=== PATIENT | female | born 1940 | race Caucasian/White ===

== ENCOUNTER 2021-02-07 08:15 | Outpatient (REF) | payer MEDICARE, SELFPAY ==
[2021-02-07 11:12] LABS: MANUAL DIFF FLAG NO
[2021-02-07 11:15] LABS: Basophils Absolute Auto 0.1 X10*3/uL (0.0-0.2); Basophils Percent Auto 1.2 % (0-2); Eosinophils Absolute Auto 0.3 X10*3/uL (0.0-0.4); Eosinophils Percent Auto 4.5 % (0-4); Hematocrit 36.8 % (37-47); Hemoglobin 12.1 g/dl (12.0-16.0); Imm Gran Abs Auto 0.01 X10*3/uL (0.00-0.03); Imm Gran Pct Auto 0.2 % (0.0-0.4); Lymphocytes Absolute Auto 3.1 X10*3/uL (1.2-4.9); Lymphocytes Percent Auto 53.6 % (20-40); Mean Corpuscular HGB Conc 32.9 g/dl (31.0-35.0); Mean Corpuscular Volume 100.3 fL (80-98); Mean Platelet Volume 9.8 fL (9.4-12.3); Monocytes Absolute Auto 0.7 X10*3/uL (0.1-1.2); Monocytes Percent Auto 11.6 % (2-11); Neutrophils Absolute Auto 1.7 X10*3/uL (2.0-8.3); Neutrophils Percent Auto 28.9 % (45-73); Platelet Count 277 X10*3/uL (160-400); Red Blood Count 3.67 X10*6/uL (4.20-5.50); Red Cell Distribution Width 13.5 % (11.0-16.0); White Blood Count 5.8 X10*3/uL (4.8-10.8)
[2021-02-07 11:37] LABS: Alanine Aminotransferase 19 U/L (0-31); Albumin Level 3.7 g/dL (3.5-5.0); Alkaline Phosphatase 86 U/L (39-117); Anion Gap 13 (12-20); Aspartate Amino Transferase 20 U/L (5-31); Bilirubin Total 0.5 mg/dL (0.0-1.0); Blood Urea Nitrogen 16 mg/dL (9-16); Calcium 9.2 mg/dL (8.4-10.2); Carbon Dioxide 24 mmol/L (22-29); Chloride 110 mmol/L (96-108); Cholesterol 259 mg/dL; Estimated Glomerular Filt Rate > 60; Glucose Fasting 99 mg/dL (60-99); HDL Cholesterol 60 mg/dL; LDL Cholesterol Calculated 169 mg/dl; Potassium 4.3 mmol/L (3.3-5.1); Sodium 143 mmol/L (135-145); Total Protein 6.6 g/dL (6.5-8.0); Triglycerides 151 mg/dL
[2021-02-08 15:01] LABS: Vitamin B12 277 pg/mL (200-900)
== END 2021-02-07 08:16 | disposition home or self-care (01) ==
LOC: HO.MANLDS 08:15
PROVIDERS: PCP Internal Medicine; Visit Provider Internal Medicine
DX: Z00.01 Encounter for general adult medical examination with abnormal findings (principal)
CPT/HCPCS: 36415; 80053; 80061; 82607; 85025

== ENCOUNTER 2021-05-05 11:56 | Outpatient (REF) | payer MEDICARE, SELFPAY ==
[2021-05-05 14:16] LABS: Vitamin B12 > 2000 pg/mL (200-900)
== END 2021-05-05 11:57 | disposition home or self-care (01) ==
LOC: HO.MANLDS 11:56
PROVIDERS: PCP Internal Medicine; Visit Provider Internal Medicine
DX: E53.8 Deficiency of other specified B group vitamins (principal)
CPT/HCPCS: 36415; 82607

== ENCOUNTER 2021-06-09 14:06 | Outpatient (REF) | payer MEDICARE, SELFPAY ==
[2021-06-09 19:15] LABS: Vitamin B12 1007 pg/mL (200-900)
== END 2021-06-09 14:07 | disposition home or self-care (01) ==
LOC: HO.MANLDS 14:06
PROVIDERS: PCP Internal Medicine; Visit Provider Internal Medicine
DX: E53.8 Deficiency of other specified B group vitamins (principal)
CPT/HCPCS: 36415; 82607

== ENCOUNTER 2022-04-01 12:17 | Outpatient (REF) | payer MEDICARE, SELFPAY ==
[2022-04-01 14:16] LABS: MANUAL DIFF FLAG NO
[2022-04-01 14:25] LABS: Basophils Absolute Auto 0.1 X10*3/uL (0.0-0.2); Basophils Percent Auto 0.8 % (0-2); Eosinophils Absolute Auto 0.1 X10*3/uL (0.0-0.4); Eosinophils Percent Auto 0.8 % (0-4); Hematocrit 38.3 % (37.0-47.0); Hemoglobin 12.9 g/dl (12.0-16.0); Imm Gran Abs Auto 0.02 X10*3/uL (0.00-0.03); Imm Gran Pct Auto 0.3 % (0.0-0.4); Lymphocytes Absolute Auto 2.8 X10*3/uL (1.2-4.9); Lymphocytes Percent Auto 38.7 % (20-40); Mean Corpuscular HGB Conc 33.7 g/dl (31.0-35.0); Mean Corpuscular Hemoglobin 33.5 pg (27.0-33.0); Mean Corpuscular Volume 99.5 fL (80.0-98.0); Mean Platelet Volume 9.3 fL (9.4-12.3); Monocytes Absolute Auto 0.6 X10*3/uL (0.1-1.2); Monocytes Percent Auto 8.9 % (2-11); Neutrophils Absolute Auto 3.7 x10*3/uL (2.0-8.3); Neutrophils Percent Auto 50.5 % (45-73); Platelet Count 275 X10*3/uL (160-400); Red Blood Count 3.85 X10*6/uL (4.20-5.50); Red Cell Distribution Width 12.4 % (11.0-16.0); White Blood Count 7.2 X10*3/uL (4.8-10.8)
[2022-04-01 14:55] LABS: Alanine Aminotransferase 14 U/L (0-31); Albumin Level 4.1 g/dL (3.5-5.0); Alkaline Phosphatase 67 U/L (39-117); Anion Gap 15 (12-20); Aspartate Amino Transferase 21 U/L (5-31); Bilirubin Total 0.5 mg/dL (0.0-1.0); Blood Urea Nitrogen 20 mg/dL (9-16); Calcium 9.5 mg/dL (8.4-10.2); Carbon Dioxide 22 mmol/L (22-29); Chloride 106 mmol/L (96-108); Estimated Glomerular Filt Rate > 60; Glucose Random 105 mg/dL (60-115); Potassium 4.4 mmol/L (3.3-5.1); Sodium 139 mmol/L (135-145); Total Protein 7.2 g/dL (6.5-8.0)
[2022-04-01 15:22] LABS: Erythrocyte Sedimentation Rate 7 MM/HR (0-20)
[2022-04-01 15:32] LABS: Folate 13.4 ng/mL (> or = 4.0); Vitamin B12 746 pg/mL (200-900)
== END 2022-04-01 12:18 | disposition home or self-care (01) ==
LOC: HO.MANLDS 12:17
PROVIDERS: Visit Provider Internal Medicine
DX: R20.0 Anesthesia of skin (principal)
CPT/HCPCS: 36415; 80053; 82607; 82746; 85025; 85652

== ENCOUNTER → 2022-10-28 09:56 | Outpatient (REF) | payer MEDICARE, SELFPAY ==
--- NOTE | ~2022-10-28 | XR_ITS ---
EXAMINATION: Lumbar spine and sacroiliac joint x-rays CLINICAL INFORMATION: Lumbar spondylolisthesis. COMPARISON: None. TECHNIQUE: 3 views of the lumbar spine and 3 views of the sacroiliac joints FINDINGS: Lumbar spine: There is posterior fusion hardware with posterior rods and bilateral transpedicular screws at L4 and S1. There are intervertebral body disc interspaces at L4-L5 and L5-S1. Surgical hardware appears intact. No fracture or dislocation. There is mild 7 mm anterior subluxation of L5 with respect to S1. There is degenerative disc disease and spondylosis at L2-L3 and L3-L4. There is atherosclerotic disease. Sacroiliac joints: The sacroiliac joints are normal-appearing. No evidence of erosive or proliferative arthritis. No fracture seen. The tip of the coccyx not included on the lateral view. There is arthritis at both hip joints. XR/XR sacroiliac joint min 3V IMPRESSION: Lumbar spine: Postsurgical changes at from L4 to S1. Mild 7 mm anterior subluxation of L5 with respect to S1. Degenerative changes at L2-L3 and L3-L4. Normal-appearing sacroiliac joints. Mild arthritis at both hip joints.
--- NOTE | ~2022-10-28 | XR_ITS ---
EXAMINATION: Lumbar spine and sacroiliac joint x-rays CLINICAL INFORMATION: Lumbar spondylolisthesis. COMPARISON: None. TECHNIQUE: 3 views of the lumbar spine and 3 views of the sacroiliac joints FINDINGS: Lumbar spine: There is posterior fusion hardware with posterior rods and bilateral transpedicular screws at L4 and S1. There are intervertebral body disc interspaces at L4-L5 and L5-S1. Surgical hardware appears intact. No fracture or dislocation. There is mild 7 mm anterior subluxation of L5 with respect to S1. There is degenerative disc disease and spondylosis at L2-L3 and L3-L4. There is atherosclerotic disease. Sacroiliac joints: The sacroiliac joints are normal-appearing. No evidence of erosive or proliferative arthritis. No fracture seen. The tip of the coccyx not included on the lateral view. There is arthritis at both hip joints. XR/XR lumbar spine 2-3V IMPRESSION: Lumbar spine: Postsurgical changes at from L4 to S1. Mild 7 mm anterior subluxation of L5 with respect to S1. Degenerative changes at L2-L3 and L3-L4. Normal-appearing sacroiliac joints. Mild arthritis at both hip joints.
--- NOTE | 2022-10-28 10:00 | CA_ITS ---
Transthoracic Echocardiogram Patient (Last, First, Middle): Shruthi Redding, Gender: Female Date of : 1940 Age: 82 Procedure Date: 10/28/2022 Procedure Type: Transthoracic Echocardiogram Location: [facility] Height: 154.94 cm Weight: 59.88 kg BSA: 1.58 m2 Heart Rate: 56 bpm BP: 155 / 80 mmHg Movie Operator: FERNANDEZ Lund MD: Brian Mejia MD City Letter Carrier: Emiliano Green MD Symptoms: CVA Z86.73 Study Quality: Fair ECG Rhythm: Bradycardia Conclusions: - 1. Normal LV systolic function with grade 1 diastolic dysfunction 2. Mild mitral regurgitation 3. Normal RV systolic pressure 4. No gross pericardial effusion 5. PFO cannot be entirely ruled out on this study Findings Left Ventricle Normal left ventricular size, thickness, and systolic function. The visually estimated ejection fraction is between 55-60%. Spectral Doppler is indicative of an impaired relaxation filling pattern. E/E prime ratio is <8, consistent with normal filling pressures. Evidence suggests grade I (mild) diastolic dysfunction. Right Ventricle Normal right ventricular cavity size and systolic function. Atria Both atria are normal in size. There is a mobile atrial septum noted. On color Doppler there is suggestion of PF for with [id number] flow on subcostal windows. However saline contrast study does not show any evidence of shunting. Consider KRIS if clinically indicated. Aortic Valve Normal aortic valve structure and function. There is no aortic valve stenosis. There is no aortic valve regurgitation. Mitral Valve There is mild anterior and posterior mitral leaflet thickening. There is mild mitral valve regurgitation. There is no mitral valve stenosis. Pulmonic Valve The pulmonic valve was not well visualized. Tricuspid Valve Likely normal tricuspid valve structure and function. There is trace tricuspid valve regurgitation. The right ventricular systolic pressure is normal. The right ventricular systolic pressure is 17 mmHg. Normal right atrial pressure. There is no evidence of pulmonary hypertension. Great Vessels All visible segments of the aorta are normal in size. The pulmonary artery was not well visualized. Venous The inferior vena cava is normal in size and collapses greater than 50% with inspiration. Pericardium/Pleural There is no evidence of pericardial effusion. Prior Study Comparison No prior study available for comparison. Measurements 2D Linear Measurements IVSd: 1.03 0.6-0.9/0.6-1.0 cm LVIDd: 3.93 3.9-5.3/4.2-5.9 cm LVIDd Index: 2.49 2.4-3.2/2.2-3.1 cm/m2 LVIDs: 2.94 2.0-3.6 cm LVPWd: 0.83 0.7-1.1 cm LA Diam: 3.00 2.7-3.8/3.0-4.0 cm LAIDs Index: 1.90 1.5-2.3 cm/m2 LV Mass: 138.22 67-162/88-224 g LV Mass Index: 87.48 43-95/49-115 g/m2 LVOT Diam: 1.60 3.0+(-)1.3 cm 2D Systolic Function EF 4C: 50.10 >55% EF 2C: 69.30 >55% EF BiP: 59.80 >55% Mitral Valve MV Pk E: 0.62 MV PK A: 0.89 MV Decel Time: 154.00 E/A: 0.70 E'Lateral: 5.87 E'Medial: 3.59 E/E' Med: 17.20 E/E' Lat: 10.50 PHT: 45.00 MVA PHT: 4.89 Decel Cass: 4.00 Aortic Valve AoV Pk Aniceto: 1.22 AoV Mn Aniceto: 0.91 AoV VTI: 0.33 AoV Pk Grad: 6.00 Aov Mn Grad: 4.00 TINA Cont.VTI: 1.43 LVOT LVOT Pk Aniceto: 0.88 LVOT Mn Aniceto: 0.63 LVOT VTI: 0.24 LVOT Pk Grad: 3.00 LVOT Mn Grad: 2.00 LVOT Diam: 1.60 LVOT Area: 2.01 Diastolic Function MV Pk E: 0.62 MV Pk A: 0.89 E/A: 0.70 E'Medial: 3.59 E/E' Med: 17.20 E' Laterial: 5.87 E/E' Lat: 10.50 Right Ventricle TAPSE (mm): 21.50 TVS' Aniceto: 10.30 Tricuspid Valve TR Pk Aniceto: 1.85 TR Pk Grad: 14.00 RA Press: 3.00 RVSP: 17.00 Great Vessels Aorta Sinus of Valsalva: 3.20 2.0-3.5 cm Ao Asc: 3.10 2.1-3.4 cm Pulmonary Valve PV Pk Aniceto: 0.83 Peak PV Grad: 3.00 Updated in Other Vendor System with Status of Final Emiliano Green MD electronically signed on 10/29/2022 5:46:37 PM with status of Final
== END ==
LOC: HO.CARD 09:56
PROVIDERS: Absent Provider Internal Medicine; PCP Internal Medicine; Visit Provider Psychiatry & Neurology Neurology
DX: M43.16 Spondylolisthesis, lumbar region (principal); Z86.73 Personal history of transient ischemic attack (TIA), and cerebral infarction without residual deficits
CPT/HCPCS: 72100; 72202; 93306

== ENCOUNTER 2022-12-16 14:15 | Outpatient (REF) | payer MEDICARE, SELFPAY ==
[2022-12-16 18:57] LABS: Uric Acid 4.9 mg/dL (2.4-5.7)
== END 2022-12-16 14:16 | disposition home or self-care (01) ==
LOC: HO.MANLDS 14:15
PROVIDERS: Visit Provider Physician Assistant
DX: M10.9 Gout, unspecified (principal)
CPT/HCPCS: 36415; 84550

== ENCOUNTER 2023-02-22 11:54 | Outpatient (REF) | payer MEDICARE, SELFPAY ==
[2023-02-22 17:51] LABS: Uric Acid 3.6 mg/dL (2.4-5.7)
== END 2023-02-22 11:55 | disposition home or self-care (01) ==
LOC: HO.MANLDS 11:54
PROVIDERS: Visit Provider Internal Medicine
DX: M10.9 Gout, unspecified (principal)
CPT/HCPCS: 36415; 84550

== ENCOUNTER 2023-03-29 10:56 | Outpatient (REF) | payer MEDICARE, SELFPAY ==
[2023-03-29 14:18] LABS: Uric Acid 2.8 mg/dL (2.4-5.7)
== END 2023-03-29 10:57 | disposition home or self-care (01) ==
LOC: HO.MANLDS 10:56
PROVIDERS: Visit Provider Internal Medicine
DX: M10.9 Gout, unspecified (principal)
CPT/HCPCS: 36415; 84550

== ENCOUNTER 2023-04-09 10:56 | Outpatient (REF) | payer MEDICARE, SELFPAY ==
[2023-04-09 13:29] LABS: MANUAL DIFF FLAG NO
[2023-04-09 13:45] LABS: Basophils Absolute Auto 0.1 X10*3/uL (0.0-0.2); Basophils Percent Auto 1.3 % (0-2); Eosinophils Absolute Auto 0.1 X10*3/uL (0.0-0.4); Eosinophils Percent Auto 1.8 % (0-4); Hemoglobin 11.6 g/dl (12.0-16.0); Imm Gran Abs Auto 0.01 X10*3/uL (0.00-0.03); Imm Gran Pct Auto 0.2 % (0.0-0.4); Lymphocytes Absolute Auto 1.9 X10*3/uL (1.2-4.9); Lymphocytes Percent Auto 30.3 % (20-40); Mean Corpuscular HGB Conc 34.1 g/dl (31.0-35.0); Mean Corpuscular Volume 96.6 fL (80.0-98.0); Mean Platelet Volume 9.6 fL (9.4-12.3); Monocytes Absolute Auto 0.5 X10*3/uL (0.1-1.2); Monocytes Percent Auto 8.1 % (2-11); Neutrophils Absolute Auto 3.6 x10*3/uL (2.0-8.3); Neutrophils Percent Auto 58.3 % (45-73); Platelet Count 297 X10*3/uL (160-400); Red Blood Count 3.52 X10*6/uL (4.20-5.50); Red Cell Distribution Width 13.4 % (11.0-16.0); White Blood Count 6.1 X10*3/uL (4.8-10.8)
[2023-04-09 14:19] LABS: Erythrocyte Sedimentation Rate 10 MM/HR (0-20)
[2023-04-09 14:36] LABS: Alanine Aminotransferase 15 U/L (0-31); Alkaline Phosphatase 63 U/L (39-117); Anion Gap 12 (12-20); Aspartate Amino Transferase 21 U/L (5-31); Bilirubin Total 0.6 mg/dL (0.0-1.0); Blood Urea Nitrogen 16 mg/dL (9-16); C Reactive Protein 0.12 mg/dL (< or = 0.50); Calcium 9.6 mg/dL (8.4-10.2); Carbon Dioxide 25 mmol/L (22-29); Chloride 103 mmol/L (96-108); Estimated Glomerular Filt Rate > 60; Glucose Random 97 mg/dL (60-115); Potassium 4.1 mmol/L (3.3-5.1); Sodium 136 mmol/L (135-145); Total Protein 6.8 g/dL (6.5-8.0)
[2023-04-09 14:37] LABS: Thyroid Stimulating Hormone 0.82 uIU/mL (0.32-4.0)
== END 2023-04-09 10:57 | disposition home or self-care (01) ==
LOC: HO.MANLDS 10:56
PROVIDERS: Visit Provider Internal Medicine
DX: R63.4 Abnormal weight loss (principal)
CPT/HCPCS: 36415; 80053; 84443; 85025; 85652; 86140

== ENCOUNTER → 2023-04-12 10:47 | Outpatient (REF) | payer MEDICARE, SELFPAY ==
--- NOTE | ~2023-04-12 | NM_ITS ---
EXAMINATION: BONE SCAN OF THE DISTAL LOWER EXTREMITIES CLINICAL INFORMATION: Gout unspecified bilateral feet, erosive changes due to gout. COMPARISON: No previous bone scan or radiographs are available for comparison. TECHNIQUE: Multiple gamma scintillation camera images of the knees to the feet with multiple projections of the distal lower extremities were performed 3 hours following the intravenous administration of 18 mCi Tc-99m MDP. FINDINGS: There is a focus of moderately increased activity in the right first metatarsophalangeal joint region. There is an additional focus of mildly increased activity medially in the proximal left foot, probably in the tuberosity of the navicular bone. There is mildly increased activity diffusely across the tarsometatarsal joint regions of the left foot and a few small faint foci of increased activity are present in the tarsal bones of the right foot, most prominently in the region of the fourth tarsometatarsal joints or lateral cuneiform bone. No other significant foci of abnormally increased activity are present in either foot or ankle. No other significant abnormalities are present in the other visualized bones. NM/NM bone scan limited area IMPRESSION: Nonspecific abnormalities are noted as described above. The most prominent abnormality is in the right first metatarsophalangeal joint region and is likely due to the patient's known gout. Several less intense foci are present as described above, the most prominent of these in the medial aspect of the proximal left foot which may be traumatic in etiology but the others are very mild and nonspecific and may be degenerative or traumatic in etiology. Correlation with current foot radiographs is recommended.
== END ==
LOC: HO.NUCMED 10:47
PROVIDERS: PCP Internal Medicine; Visit Provider Physician Assistant
DX: M10.9 Gout, unspecified (principal)
CPT/HCPCS: 78300; A9503

== ENCOUNTER 2023-04-30 10:53 | Outpatient (REF) | payer MEDICARE, SELFPAY ==
[2023-04-30 13:57] LABS: C Reactive Protein 0.18 mg/dL (< or = 0.50); Magnesium 1.6 mg/dL (1.6-2.6); Uric Acid 1.8 mg/dL (2.4-5.7)
[2023-04-30 14:02] LABS: Erythrocyte Sedimentation Rate 7 MM/HR (0-20)
== END 2023-04-30 10:54 | disposition home or self-care (01) ==
LOC: HO.MANLDS 10:53
PROVIDERS: PCP Physician Assistant; Visit Provider Internal Medicine
DX: M10.071 Idiopathic gout, right ankle and foot (principal)
CPT/HCPCS: 36415; 83735; 84550; 85652; 86140

== ENCOUNTER 2023-06-18 11:12 | Outpatient (REF) | payer MEDICARE, SELFPAY ==
[2023-06-18 13:52] LABS: Uric Acid 2.7 mg/dL (2.4-5.7)
== END 2023-06-18 11:13 | disposition home or self-care (01) ==
LOC: HO.MANLDS 11:12
PROVIDERS: Visit Provider Internal Medicine
DX: M10.9 Gout, unspecified (principal)
CPT/HCPCS: 36415; 84550

== ENCOUNTER 2023-07-27 11:34 | Outpatient (REF) | payer MEDICARE, SELFPAY | END 2023-07-27 11:35 | disposition home or self-care (01) | LOC: HO.MANLDS 11:34 | PROVIDERS: Visit Provider Internal Medicine | DX: M10.9 Gout, unspecified (principal) | CPT/HCPCS: 36415; 84550 ==

== ENCOUNTER 2023-10-22 08:50 | Outpatient (REF) | payer MEDICARE, SELFPAY ==
[2023-10-22 13:26] LABS: MANUAL DIFF FLAG NO
[2023-10-22 13:40] LABS: Basophils Absolute Auto 0.1 X10*3/uL (0.0-0.2); Basophils Percent Auto 1.4 % (0-2); Eosinophils Absolute Auto 0.1 X10*3/uL (0.0-0.4); Eosinophils Percent Auto 2.3 % (0-4); Hematocrit 35.4 % (37.0-47.0); Hemoglobin 12.1 g/dl (12.0-16.0); Imm Gran Abs Auto 0.01 X10*3/uL (0.00-0.03); Imm Gran Pct Auto 0.2 % (0.0-0.4); Lymphocytes Percent Auto 34.8 % (20-40); Mean Corpuscular HGB Conc 34.2 g/dl (31.0-35.0); Mean Corpuscular Hemoglobin 34.7 pg (27.0-33.0); Mean Corpuscular Volume 101.4 fL (80.0-98.0); Mean Platelet Volume 9.5 fL (9.4-12.3); Monocytes Absolute Auto 0.5 X10*3/uL (0.1-1.2); Monocytes Percent Auto 9.2 % (2-11); Neutrophils Percent Auto 52.1 % (45-73); Platelet Count 270 X10*3/uL (160-400); Red Blood Count 3.49 X10*6/uL (4.20-5.50); Red Cell Distribution Width 13.2 % (11.0-16.0); White Blood Count 5.8 X10*3/uL (4.8-10.8)
[2023-10-22 14:07] LABS: Alanine Aminotransferase 15 U/L (0-31); Alkaline Phosphatase 66 U/L (39-117); Anion Gap 9 (12-20); Aspartate Amino Transferase 20 U/L (5-31); Bilirubin Total 0.5 mg/dL (0.0-1.0); Blood Urea Nitrogen 22 mg/dL (9-16); Calcium 9.5 mg/dL (8.4-10.2); Carbon Dioxide 28 mmol/L (22-29); Chloride 107 mmol/L (96-108); Cholesterol 235 mg/dL (<200); Estimated Glomerular Filt Rate > 60; Glucose Random 89 mg/dL (60-115); HDL Cholesterol 100 mg/dL (>40); LDL Cholesterol Calculated 125 mg/dL (<100); Magnesium 1.8 mg/dL (1.6-2.6); Potassium 4.4 mmol/L (3.3-5.1); Sodium 140 mmol/L (135-145); Total Protein 7.1 g/dL (6.5-8.0); Triglycerides 50 mg/dL (<150); Uric Acid 3.6 mg/dL (2.4-5.7)
[2023-10-22 14:26] LABS: Thyroid Stimulating Hormone 0.94 uIU/mL (0.32-4.0); Vitamin D 25-OH Total 59.5 ng/mL (>30)
== END 2023-10-22 08:51 | disposition home or self-care (01) ==
LOC: HO.MANLDS 08:50
PROVIDERS: Visit Provider Internal Medicine
DX: M10.9 Gout, unspecified (principal); I10 Essential (primary) hypertension
CPT/HCPCS: 36415; 80053; 80061; 82306; 83735; 84443; 84550; 85025

== ENCOUNTER 2023-12-23 13:59 | Outpatient (REF) | payer MEDICARE, SELFPAY ==
--- NOTE | ~2023-12-23 | XR_ITS ---
EXAMINATION: XR CHEST CLINICAL INFORMATION: Chronic cough. COMPARISON: None available. TECHNIQUE: 2 views of the chest were obtained. FINDINGS: Degenerative changes in the thoracic spine. Lung volumes are low. There is no gross pneumothorax. Heart size is normal. No pleural effusion. No focal consolidation to suggest pneumonia. XR/XR chest 2V IMPRESSION: No evidence of pneumonia.
--- NOTE | ~2023-12-23 | XR_ITS ---
EXAMINATION: XR SINUSES CLINICAL INFORMATION: Headache with orthostatic component . COMPARISON: None available. TECHNIQUE: 4 views of the paranasal sinuses. FINDINGS: No gross air-fluid levels appreciated in the maxillary sinuses. Frontal sinuses appear patent. Slight deviation of the nasal septum to the left. XR/XR sinus min 3V IMPRESSION: 1. Slight deviation of the nasal septum to the left. No gross air-fluid levels appreciated in the maxillary sinuses. 2. Dedicated CT scan of the paranasal sinuses/facial bones recommended if there is concern for sinus disease, facial bone fracture or other intracranial pathology as CT scan is much more sensitive for evaluation of intracranial pathology.
[2023-12-23 14:25] LABS: MANUAL DIFF FLAG NO
[2023-12-23 15:16] LABS: Basophils Absolute Auto 0.1 X10*3/uL (0.0-0.2); Eosinophils Absolute Auto 0.1 X10*3/uL (0.0-0.4); Eosinophils Percent Auto 1.2 % (0-4); Hematocrit 34.3 % (37.0-47.0); Hemoglobin 11.7 g/dl (12.0-16.0); Imm Gran Abs Auto 0.01 X10*3/uL (0.00-0.03); Imm Gran Pct Auto 0.1 % (0.0-0.4); Lymphocytes Absolute Auto 2.3 X10*3/uL (1.2-4.9); Lymphocytes Percent Auto 31.8 % (20-40); Mean Corpuscular HGB Conc 34.1 g/dl (31.0-35.0); Mean Corpuscular Hemoglobin 34.6 pg (27.0-33.0); Mean Corpuscular Volume 101.5 fL (80.0-98.0); Mean Platelet Volume 9.3 fL (9.4-12.3); Monocytes Absolute Auto 0.6 X10*3/uL (0.1-1.2); Neutrophils Absolute Auto 4.2 x10*3/uL (2.0-8.3); Neutrophils Percent Auto 57.9 % (45-73); Platelet Count 263 X10*3/uL (160-400); Red Blood Count 3.38 X10*6/uL (4.20-5.50); Red Cell Distribution Width 13.2 % (11.0-16.0); White Blood Count 7.3 X10*3/uL (4.8-10.8)
[2023-12-23 15:18] LABS: Basophils Absolute Auto 0.1 X10*3/uL (0.0-0.2); Basophils Percent Auto 0.8 % (0-2); Eosinophils Absolute Auto 0.1 X10*3/uL (0.0-0.4); Eosinophils Percent Auto 1.1 % (0-4); Hematocrit 34.1 % (37.0-47.0); Hemoglobin 11.6 g/dl (12.0-16.0); Imm Gran Abs Auto 0.03 X10*3/uL (0.00-0.03); Imm Gran Pct Auto 0.4 % (0.0-0.4); Lymphocytes Absolute Auto 2.4 X10*3/uL (1.2-4.9); Lymphocytes Percent Auto 32.6 % (20-40); Mean Corpuscular Hemoglobin 34.2 pg (27.0-33.0); Mean Corpuscular Volume 100.6 fL (80.0-98.0); Mean Platelet Volume 9.5 fL (9.4-12.3); Monocytes Absolute Auto 0.6 X10*3/uL (0.1-1.2); Monocytes Percent Auto 7.6 % (2-11); Neutrophils Absolute Auto 4.2 x10*3/uL (2.0-8.3); Neutrophils Percent Auto 57.5 % (45-73); Platelet Count 268 X10*3/uL (160-400); Red Blood Count 3.39 X10*6/uL (4.20-5.50); White Blood Count 7.2 X10*3/uL (4.8-10.8)
[2023-12-23 15:33] LABS: Alanine Aminotransferase 15 U/L (0-31); Albumin Level 3.9 g/dL (3.5-5.0); Alkaline Phosphatase 74 U/L (39-117); Anion Gap 11 (12-20); Aspartate Amino Transferase 21 U/L (5-31); Bilirubin Total 0.5 mg/dL (0.0-1.0); Blood Urea Nitrogen 23 mg/dL (9-16); C Reactive Protein 0.11 mg/dL (< or = 0.50); Calcium 9.3 mg/dL (8.4-10.2); Carbon Dioxide 23 mmol/L (22-29); Chloride 108 mmol/L (96-108); Estimated Glomerular Filt Rate 56; Glucose Random 87 mg/dL (60-115); Potassium 4.4 mmol/L (3.3-5.1); Sodium 138 mmol/L (135-145); Total Protein 6.9 g/dL (6.5-8.0)
[2023-12-23 15:44] LABS: Iron 103 mcg/dL (30-160); Percent Iron Saturation 40 % (15-50); Total Iron Binding Capacity 258 mcg/dL (228-428); Unsaturated Iron Binding 155 ug/dL
[2023-12-23 15:54] LABS: Ferritin 210 ng/mL (10-250)
[2023-12-23 16:21] LABS: Erythrocyte Sedimentation Rate 9 MM/HR (0-20)
== END 2023-12-23 14:00 | disposition home or self-care (01) ==
LOC: HO.XRAY 13:59
PROVIDERS: Absent Provider Physician Assistant; PCP Internal Medicine; Visit Provider Internal Medicine
DX: J32.8 Other chronic sinusitis (principal); M10.9 Gout, unspecified; R51.0 Headache with orthostatic component, not elsewhere classified; R05.3 Chronic cough; Z86.39 Personal history of other endocrine, nutritional and metabolic disease
CPT/HCPCS: 36415; 70220; 71046; 80053; 82728; 83540; 84550; 85025; 85652; 86140

== ENCOUNTER 2024-01-07 10:55 | Outpatient (REF) | payer MEDICARE, SELFPAY ==
[2024-01-07 13:01] LABS: MANUAL DIFF FLAG NO
[2024-01-07 13:13] LABS: Basophils Absolute Auto 0.1 X10*3/uL (0.0-0.2); Basophils Percent Auto 1.3 % (0-2); Eosinophils Absolute Auto 0.2 X10*3/uL (0.0-0.4); Eosinophils Percent Auto 2.6 % (0-4); Hematocrit 35.2 % (37.0-47.0); Hemoglobin 11.9 g/dl (12.0-16.0); Imm Gran Abs Auto 0.01 X10*3/uL (0.00-0.03); Imm Gran Pct Auto 0.2 % (0.0-0.4); Lymphocytes Absolute Auto 1.9 X10*3/uL (1.2-4.9); Lymphocytes Percent Auto 29.7 % (20-40); Mean Corpuscular HGB Conc 33.8 g/dl (31.0-35.0); Mean Corpuscular Hemoglobin 34.5 pg (27.0-33.0); Mean Platelet Volume 9.4 fL (9.4-12.3); Monocytes Absolute Auto 0.6 X10*3/uL (0.1-1.2); Monocytes Percent Auto 8.8 % (2-11); Neutrophils Absolute Auto 3.6 x10*3/uL (2.0-8.3); Neutrophils Percent Auto 57.4 % (45-73); Platelet Count 252 X10*3/uL (160-400); Red Blood Count 3.45 X10*6/uL (4.20-5.50); Red Cell Distribution Width 13.5 % (11.0-16.0); White Blood Count 6.2 X10*3/uL (4.8-10.8)
[2024-01-07 13:23] LABS: INTERNATIONAL NORM RATIO 0.9 (0.9-1.1); Prothrombin Time 11.2 SEC (11.1-13.3)
[2024-01-07 13:26] LABS: Partial Thromboplastin Time 28.6 SEC (26.0-36.8)
[2024-01-07 14:11] LABS: Iron 120 mcg/dL (30-160); Percent Iron Saturation 46 % (15-50); Total Iron Binding Capacity 259 mcg/dL (228-428); Unsaturated Iron Binding 139 ug/dL
[2024-01-07 14:18] LABS: Ferritin 205 ng/mL (10-250)
[2024-01-07 14:28] LABS: Folate 11.2 ng/mL (> or = 4.0); Vitamin B12 801 pg/mL (200-900)
== END 2024-01-07 10:56 | disposition home or self-care (01) ==
LOC: HO.MANLDS 10:55
PROVIDERS: Visit Provider Physician Assistant
DX: D64.9 Anemia, unspecified (principal)
CPT/HCPCS: 36415; 82306; 82607; 82728; 82746; 83540; 85025; 85610; 85730

== ENCOUNTER 2024-02-11 14:17 | Outpatient (REF) | payer MEDICARE, SELFPAY ==
--- NOTE | ~2024-02-11 | CT_ITS ---
EXAMINATION: CT SINUS WITHOUT CONTRAST CLINICAL INFORMATION: Chronic sinusitis COMPARISON: None available. TECHNIQUE: Multidetector CT acquisitions of the maxillofacial region without administration of intravenous contrast. This CT examination was performed using dose optimization techniques as appropriate, variously including the following: *Automated exposure control *Adjustment of mA and/or kV according to patient size (this includes techniques or standardized protocols for targeted exams where dose is matched to indication/reason for exam; i.e. extremities or head) *Use of iterative reconstruction technique DLP: 65 mGy-cm FINDINGS: The frontal sinuses are clear. The bilateral frontoethmoidal recesses are patent. The ethmoid air cells are clear. The anterior ethmoidal arteries are protected. There is no pneumatization of the jefry brady. The olfactory fossae are symmetric in depth. The sphenoid sinuses are clear. The intersphenoid septum is midline. The bilateral sphenoethmoidal recesses are patent. The maxillary sinuses are clear. The ostiomeatal units are patent however mildly narrowed on the right. There is no Ron cell or abnormal elongation of the infundibulum bilaterally. The maxilla demonstrates no periapical lucencies extending into the floor of the maxillary sinuses. The nasal septum is midline without bony spur. The choana are patent bilaterally. There is no sierra bullosa. The lamina papyracea are unremarkable. Sequela of bilateral lens replacement. Otherwise, no acute orbital pathology. The temporomandibular joints normal. Atherosclerotic calcifications of the bilateral carotid siphons. The visualized portions of the brain are unremarkable. CT/CT sinus wo IV con IMPRESSION: No active sinus disease. The major sinus drainage pathways are patent. Electronically signed by: Imelda Gallego MD 03/07/2024 09:17 AM EDT
== END 2024-02-11 14:18 | disposition home or self-care (01) ==
LOC: HO.CT 14:17
PROVIDERS: Visit Provider Physician Assistant
DX: J32.8 Other chronic sinusitis (principal)
CPT/HCPCS: 70486

== ENCOUNTER 2024-04-07 10:31 | Outpatient (REF) | payer MEDICARE, SELFPAY ==
[2024-04-07 13:18] LABS: MANUAL DIFF FLAG NO
[2024-04-07 13:33] LABS: Basophils Absolute Auto 0.1 X10*3/uL (0.0-0.2); Basophils Percent Auto 1.3 % (0-2); Eosinophils Absolute Auto 0.1 X10*3/uL (0.0-0.4); Eosinophils Percent Auto 1.6 % (0-4); Hematocrit 36.3 % (37.0-47.0); Hemoglobin 12.6 g/dl (12.0-16.0); Imm Gran Abs Auto 0.02 X10*3/uL (0.00-0.03); Imm Gran Pct Auto 0.3 % (0.0-0.4); Lymphocytes Absolute Auto 2.4 X10*3/uL (1.2-4.9); Lymphocytes Percent Auto 35.7 % (20-40); Mean Corpuscular HGB Conc 34.7 g/dl (31.0-35.0); Mean Corpuscular Hemoglobin 35.2 pg (27.0-33.0); Mean Corpuscular Volume 101.4 fL (80.0-98.0); Mean Platelet Volume 9.5 fL (9.4-12.3); Monocytes Absolute Auto 0.6 X10*3/uL (0.1-1.2); Monocytes Percent Auto 8.7 % (2-11); Neutrophils Absolute Auto 3.5 x10*3/uL (2.0-8.3); Neutrophils Percent Auto 52.4 % (45-73); Platelet Count 257 X10*3/uL (160-400); Red Blood Count 3.58 X10*6/uL (4.20-5.50); Red Cell Distribution Width 13.1 % (11.0-16.0); White Blood Count 6.8 X10*3/uL (4.8-10.8)
[2024-04-07 14:07] LABS: Iron 115 mcg/dL (30-160); Percent Iron Saturation 41 % (15-50); Total Iron Binding Capacity 278 mcg/dL (228-428); Unsaturated Iron Binding 163 ug/dL; Uric Acid 3.1 mg/dL (2.4-5.7)
[2024-04-07 14:26] LABS: Ferritin 211 ng/mL (10-250)
== END 2024-04-07 10:32 | disposition home or self-care (01) ==
LOC: HO.MANLDS 10:31
PROVIDERS: Visit Provider Internal Medicine
DX: M10.9 Gout, unspecified (principal)
CPT/HCPCS: 36415; 82728; 83540; 84550; 85025

== ENCOUNTER 2024-04-07 10:39 | Outpatient (REF) | payer MEDICARE, SELFPAY | END 2024-04-07 10:40 | disposition home or self-care (01) | LOC: HO.MANLDS 10:39 | PROVIDERS: Visit Provider Internal Medicine | DX: Z13.89 Encounter for screening for other disorder (principal) ==

== ENCOUNTER 2024-04-13 11:41 | Outpatient (REF) | payer MEDICARE, SELFPAY ==
[2024-04-13 12:03] LABS: MANUAL DIFF FLAG NO
[2024-04-13 12:43] LABS: Basophils Absolute Auto 0.1 X10*3/uL (0.0-0.2); Basophils Percent Auto 1.2 % (0-2); Eosinophils Absolute Auto 0.1 X10*3/uL (0.0-0.4); Eosinophils Percent Auto 2.1 % (0-4); Hematocrit 35.3 % (37.0-47.0); Hemoglobin 12.2 g/dl (12.0-16.0); Imm Gran Abs Auto 0.01 X10*3/uL (0.00-0.03); Imm Gran Pct Auto 0.1 % (0.0-0.4); Lymphocytes Absolute Auto 2.3 X10*3/uL (1.2-4.9); Lymphocytes Percent Auto 34.6 % (20-40); Mean Corpuscular HGB Conc 34.6 g/dl (31.0-35.0); Mean Corpuscular Volume 101.1 fL (80.0-98.0); Mean Platelet Volume 9.2 fL (9.4-12.3); Monocytes Absolute Auto 0.6 X10*3/uL (0.1-1.2); Monocytes Percent Auto 8.7 % (2-11); Neutrophils Absolute Auto 3.6 x10*3/uL (2.0-8.3); Neutrophils Percent Auto 53.3 % (45-73); Platelet Count 246 X10*3/uL (160-400); Red Blood Count 3.49 X10*6/uL (4.20-5.50); Red Cell Distribution Width 13.2 % (11.0-16.0); White Blood Count 6.8 X10*3/uL (4.8-10.8)
[2024-04-13 13:09] LABS: Alanine Aminotransferase 17 U/L (0-31); Aspartate Amino Transferase 21 U/L (5-31); Estimated Glomerular Filt Rate > 60
[2024-04-13 13:27] LABS: Erythrocyte Sedimentation Rate 8 MM/HR (0-20)
== END 2024-04-13 11:42 | disposition home or self-care (01) ==
LOC: HO.LAB 11:41
PROVIDERS: Absent Provider Internal Medicine Rheumatology; PCP Internal Medicine; Visit Provider Internal Medicine
DX: M10.9 Gout, unspecified (principal); M19.049 Primary osteoarthritis, unspecified hand; M19.90 Unspecified osteoarthritis, unspecified site; M25.50 Pain in unspecified joint; J32.9 Chronic sinusitis, unspecified
CPT/HCPCS: 36415; 82565; 84450; 84460; 84550; 85025; 85652; 86140

== ENCOUNTER 2024-07-21 15:43 | Outpatient (REF) | payer MEDICARE, SELFPAY ==
--- NOTE | 2024-07-21 15:48 | PFT_ITS ---
Indication dyspnea Spirometry [FEV1 to FVC 84%; FEV1 2.08 L; FVC 2.47 L. No significant response to bronchodilators noted.] Lung Volumes [Total lung capacity 79% predicted] Diffusion Capacity [DLCO 75% predicted] Flow Volume Loops [There appears to be some plateauing of the flows during the inspiratory phase of the flow volume loop suggests the possibility of a small extrathoracic dynamic obstruction.] Comparisons [None] Interpretation [No definitive obstructive ventilatory defects. Some slight plateauing of the inspiratory flows will suggest an upper airway extrathoracic dynamic obstruction such as vocal cord dysfunction. Patient also has a mild restrictive ventilatory defect. In addition to that a mild diffusion impairment. Clinical correlation warranted. ] MTDD
--- OUTSIDE RECORDS SUMMARY | 2024-07-21 16:34 | XMS_ITS | Data Portability ---
Author Organization [facility] Home Service Address [address] [place] [address] Assessment Encounter Date Assessment Date Assessment LastModified by Organization Details LastModified Time 06/11/2023 06/11/2023 [address] [place] [id number] (ELECTRICIAN BUS) : MDM LOW MUST MEET 2 OF 3 ELEMENTS: PROBLEMS, DATA OR RISK ELEMENT 1: PROBLEMS ADDRESSED (LOW): 2 OR MORE SELF-LIMITED OR MINOR PROBLEMS OR 1 STABLE CHRONIC ILLNESS OR 1 ACUTE UNCOMPLICATED ILLNESS OR INJURY ELEMENT 2: DATA TO BE REVISED AND ANALYZED (LOW) MUST MEET 1 OF 2 CATEGORIES: CATEGORY 1. REVIEW OF PRIOR EXTERNAL NOTES/RESULTS, ORDERING OF TEST(S) CATEGORY 2. ASSESSMENT REQUIRING INDEPENDENT HISTORIAN(S) INCLUDE WHO THE HISTORIAN IS AND RELATION TO PT AND WHY PT IS UNABLE TO GIVE COMPLETE HISTORY ELEMENT 3: RISK (LOW) RISK OF COMPLICATIONS AND/OR MORBIDITY OR MORTALITY OF PATIENT MANAGEMENT PROVIDER MUST THOROUGHLY DOCUMENT ALL OF THE ELEMENTS COVERED Not available 06/11/2023 15:18:58 12/08/2023 12/08/2023 [id number] [place] [id number] (ELECTRICIAN BUS) MDM HIGH MUST MEET 2 OUT OF 3 ELEMENTS: PROBLEMS, DATA OR RISK ELEMENT 1: PROBLEMS 1 OR MORE CHRONIC ILLNESS W/SEVERE EXACERBATION, PROGRESSION MAY REQUIRE HOSPITAL LEVEL CARE OR 1 ACUTE OR CHRONIC ILLNESS OR INJURY THAT POSES A THREAT TO LIFE OR BODILY FUNCTION ELEMENT 2: DATA: MUST MEET 2 OF 3 CATEGORIES CATEGORY 1 REVIEW OF PRIOR EXTERNAL NOTES REVIEW OF THE RESULTS ORDERING OF EACH TEST ASSESSMENT REQUIRING INDEPENDENT HISTORIAN(S) CATEGORY 2: INDEPENDENT INTERPRETATION OF TESTS BY ANOTHER PROVIDER/SPECIALI ST CATEGORY 3: DISCUSSION OF MGT OR TEST INTERPRETATION W/EXTERNAL PHYSICIAN/SPECIAL IST ELEMENT 3: RISK HIGH RISK OF MORBIDITY FROM ADDITIONAL DIAGNOSTIC TESTING OR TREATMENT PROVIDER MUST THOROUGHLY DOCUMENT EACH ELEMENT THAT IS COVERED Not available 12/08/2023 14:39:30 06/12/2024 06/12/2024 [address] [place] [address] (ELECTRICIAN BUS) MDM MODERATE MUST MEET 2 OUT OF 3 ELEMENTS: PROBLEMS, DATA OR RISK ELEMENT 1: PROBLEMS ADDRESSED 1 OR MORE CHRONIC ILLNESS WITH EXACERBATION OR 2 OR MORE STABLE CHRONIC ILLNESSES OR 1 UNDIAGNOSED NEW PROBLEM OR 1 ACUTE ILLNESS W/SYMPTOMS OR 1 ACUTE COMPLICATED INJURY ELEMENT 2: DATA MUST MEET 1 OF 3 CATEGORIES CATEGORY 1: REVIEW OF PRIOR EXTERNAL NOTES, REVIEW OF RESULTS, ORDERING OF EACH TEST, ASSESSMENT REQUIRING INDEPENDENT HISTORIAN OR CATEGORY 2: INDEPENDENT INTERPRETATION OF TESTS BY ANOTHER PHYSICIAN OR SPECIALIST OR CATEGORY 3: DISCUSSION OF MGT OR TEST INTERPRETATION W/EXTERNAL PHYSICIAN OR SPECIALIST ELEMENT 3: RISK RISK OF COMPLICATIONS AND/OR MORBIDITY OR MORTALITY OF PATIENT MANAGEMENT PROVIDER MUST THOROUGHLY DOCUMENT EACH ELEMENT THAT IS COVERED Not available 06/12/2024 13:56:13 Plan of Treatment Reminders Order Date Submit Date Provider Last Modified By Organization Details Last Modified Time Details Appointments MEDICARE ANNUAL WELLNESS 2024 11:00A M DR RICHMOND Not available Not available Not available Lab CMP, serum or plasma 2023 024 [facility], [address] [place] [address], [id number], 10/25/2023 11:37:05 CBC 2023 024 [facility], [address] [place] [address], [id number], 12/24/2023 11:05:36 TSH, serum or plasma 2023 024 [facility], [address] [place] [address], [id number], 08/27/2023 11:27:58 vitamin D, 25-hydrox y, total, serum 2023 024 [facility], [address] [place] [address], [id number], 08/27/2023 11:27:58 magnesium , serum or plasma 2023 024 [facility], [address] [place] [address], [id number], 08/27/2023 11:27:58 lipid panel, blood 2023 024 [facility], [address] [place] [address], [address], 08/27/2023 11:27:58 uric acid, serum or plasma 2023 024 [facility], [address] [place] [address], [id number], 12/08/2023 14:41:46 iron + TIBC + ferritin, serum 2023 024 [facility], [address] [place] [address], [id number], 12/15/2023 08:36:09 CBC 2023 024 [facility], [address] [place] [address], [id number], 12/08/2023 14:41:46 iron + TIBC + ferritin, serum 2023 024 [facility], [address] [place] [address], [address], 01/10/2024 11:28:05 iron + TIBC + ferritin, serum 2023 024 [facility], [address] [place] [address], [id number], 06/09/2024 10:32:23 iron + TIBC + ferritin, serum 2023 025 [facility], [address] [place] [address], [id number], 06/09/2024 10:32:23 ESR (erythroc yte sedimenta tion rate), blood 2023 024 [facility], [address] [place] [address], [id number], 12/20/2023 11:55:40 C-reactiv e protein, quantitat aniya, serum or plasma 2023 024 [facility], [address] [place] [address], [id number], 12/20/2023 11:55:40 CBC w/ auto diff 2023 [facility], [address] [place] [address], [id number], 12/20/2023 11:55:40 CMP, serum or plasma 2023 024 [facility], [address] [place] [address], [id number], 12/24/2023 11:13:19 Referral None recorded. Procedures None recorded. Surgeries None recorded. Imaging XR, sinuses 2023 [facility] (Imaging), [address] [place] [address], [id number], 01/17/2024 08:21:48 XR, chest, 2 view 2023 [facility], [address] [place] [address], [address], 01/03/2024 08:51:10 Medication Orders azithromy aquilino 250 mg tablet 2023 024 [id number], [address] [place], [address], 06/12/2024 14:00:29 Patient TargetsNo targets recorded. Patient Instructions Encounter Date Encounter Id Patient Instructions Last Modified By Organization Details Last Modified Time 12/08/2023 [id number] gout: care instructions Not available 12/08/2023 14:40:25 prediabetes: car e instructions Not available 12/08/2023 14:40:25 allergies: care instructions Not available 12/08/2023 14:40:25 high cholesterol : care instructions Not available 12/08/2023 14:40:25 06/12/2024 [id number] pulse oximetry* Not available 06/12/2024 14:00:27 cough: care instructions Not available 06/12/2024 14:00:27 complete PFT w/ post bronchodilator spirometry* hrubner Not available 06/19/2024 08:27:37 Reason for Referral None Reported. Results Created Date Observation Date Name Description Value Unit Range Abnormal Flag Note LastModifiedBy Organization Detail LastModifiedTime 06/12/2006/12/2024 pulse oxime try* Result 98% Not Available [facility] [address], [place], [address], 06/12/2024 08:39:08 01/10/20 24 12/23/2023 XR, chest , 2 view No observ ation record ed. [address] (Medical Records) [address] [place], [address], 01/10/2024 15:50:39 01/19/20 24 12/23/2023 XR, sinus es No observ ation record ed. [address] (Medical Records) [address] [place], [address], 01/19/2024 15:23:28 03/07/20 24 02/11/2024 CT, sinus es, w/o contr ast No observ ation record ed. [facility] (Medical Records) [address] [place], [address], 03/08/2024 12:04:11 Result Notes None recorded. Problems Name Problem SNOMED Code Status Onset Date Resolution Date Notes Provider Name and Address Organization Details Recorded Time Lumbar arthritis 546417664 Active 2018 Not Available [facility] 0 09:56:16 Lumbar spondylol isthesis 811994899239 102 Active 2020 Joseluis Boyce Bonnie, DO [address] [place] [address], [address], [facility] 1 15:52:45 Bradycard ia 58648689 Active 2020 Joseluis Richmond, DO [address] [place] [address], [address], [facility] 1 12:36:16 Numbness of face 974875577 Active 2021 Joseluis Murraykisha, DO [address] [place] [address], [address], [facility] 2 12:11:58 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 Joseluis Richmond, DO [address] [place] [address], [address], [facility] 2 12:23:03 Irritable bowel syndrome 63065743 Active 2017 Not Available [facility] 0 09:56:16 Diverticu litis of sigmoid colon 560393865 Active 2017 Not Available [facility] 0 09:56:16 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 25002372 Active 2017 Not Available [facility] 0 09:56:16 Hypertens aniya disorder 15827568 Active 2017 Not Available [facility] 0 09:56:16 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 044972980 Active 2017 Not Available [facility] 0 09:56:16 Gastroeso phageal reflux disease 777732696 Active 2017 Not Available [facility] 0 09:56:16 Hyperlipi demia 03609892 Active 2017 Not Available [facility] 0 09:56:16 Cataract 001222986 Active 2017 Not Available [facility] 0 09:56:16 Acute gout 956975614 Active 2022 BLAZE PAULA [address] [place] [address], [address], [facility] 3 12:20:30 Impaired fasting glycemia 408210788 Active 2022 BLAZE PAULA [address] [place] [address], [address], [facility] 3 16:27:27 Dry eyes 379541810 Active 2022 BLAZE PAULA [address] [place] [address], [address], [facility] 3 16:38:13 Gout 42853099 Active 2022 BLAZE PAULA [address] [place] [address], [address], [facility] 3 16:43:02 Referred otalgia 20413872 Active 2022 Joseluis Richmond, [address] [place] [address], [address], [facility] 3 17:13:46 Degenerat ion of lumbar intervert ebral disc 48412709 Active 2022 BLAZE PAULA [address] [place] [address], [address], [facility] 3 11:53:57 Degenerat aniya lumbar spinal stenosis 056584755 Active 2022 BLAZE PAULA [address] [place] [address], [address], [facility] 3 14:32:34 Spinal stenosis of lumbar region 12371130 Active 2022 BLAZE PAULA [address] [place] [address], [address], [facility] 3 14:26:37 Constipat ion 04204121 Active 2022 Joseluis Richmond DO [address] [place] [address], [address], [facility] 3 14:07:04 Primary gout 80216258 Active 2022 Joseluis Richmond DO [address] [place] [address], [address], [facility] 3 17:56:11 Unintenti onal weight loss 852130383 Active 2022 Joseluis Richmond DO [address] [place] [address], [address], [facility] 3 14:15:19 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 2022 BLAZE PAULA [address] [place] [address], [address], [facility] 3 14:58:09 Foot pain 74514810 Active 2022 BLAZE PAULA [address] [place] [address], [address], [facility] 3 12:20:38 Foot pain 28969806 Active 2022 BLAZE PAULA [address] [place] [address], [address], [facility] 3 12:25:48 Iron deficienc y anemia 18417033 Active 2022 BLAZE PAULA [address] [place] [address], [address], [facility] 3 12:25:53 Inflammat ion of lumbar spine joint 634327281 Active 2023 Joseluis Richmond DO [address] [place] [address], [address], [facility] 4 11:19:27 Squamous cell carcinoma 355862640 Active 2023 Joseluis Richmond DO [address] [place] [address], [address], [facility] 4 11:27:37 Allergic rhinitis 71906051 Active 2023 Joseluis Richmond DO [address] [place] [address], [address], [facility] 4 14:37:51 Cough 68765413 Active 2023 BLAZE PAULA [address] [place] [address], [address], [facility] 4 11:40:57 Nasal congestio n 61071156 Active 2023 BLAZE PAULA [address] [place] [address], [address], [facility] 4 11:43:36 Frontal sinus pain 666615154 Active 2023 BLAZE PAULA [address] [place] [address], [address], [facility] 4 11:46:05 Bilateral earache 046328629 Active 2023 BLAZE PAULA [address] [place] [address], [address], [facility] 4 11:50:04 Chronic sinusitis 88979899 Active 2023 BLAZE PAULA [address] [place] [address], [address], [facility] 4 11:51:43 Anemia 195526664 Active 2023 BLAZE PAULA [address] [place] [address], [address], [facility] 4 15:52:58 Dyspnea on exertion 10132420 Active 2023 Joseluis Richmond DO [address] [place] [address], [address], [facility] 4 13:57:04 Osteoarth ritis 456593907 Active 2017 Not Available [facility] 0 09:56:16 Osteoarth ritis of wrist 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 Procedures Surgical History Date Name Laterality Status Provider Name and Address Organization Details Recorded Time Colonoscopy completed Kaila Cisneros [facility] 04/12/2019 14:32:11 Laparoscopy completed Kaila Guillendaniela ANIA Amelia Fawad [facility] Internal [facility] 04/12/2019 14:32:11 Imaging Results Imaging Date Name Status LastModified by Organiz ation Details LastModified Time 12/23/2023 XR, chest, 2 view completed [address] (Medical Records) [address] [place], [address], 01/10/2024 15:50:39 12/23/2023 XR, sinuses completed [address] (Medical Records) [address] [place], [address], 01/19/2024 15:23:28 02/11/2024 CT, sinuses, w/o contrast completed [facility] (Medical Records) [address] [place], [address], 03/08/2024 12:04:11 Procedure Notes None recorded. Medical Equipment None Reported. Allergies Allergen ID Allergen Name Allergen Category Reaction Reaction Severity Criticality Documentation Date Start Date Code Code System Note Provider Name and Address Organization Details Recorded Time 4641 tizanidin e medicatio n confusion Not available Not available 01/15/2021 01170 RxNorm react ed with john Richmond, DO [address] [place], [address], [facility] 1 14:30:31 599 meloxicam medicatio n Not available Not available Not available 09/15/2017 88577 RxNorm [facility]ke [facility] 8 10:29:17 600 Non-stero idal anti-infl ammatory agent (product) medicatio n Not available Not available Not available 09/15/2017 27825 005 SNOMED [facility] 8 10:29:24 601 succinylc holine Not available Not available Not available Not available 09/15/2017 66838 RxNorm Gregoria locke [facility] 8 10:29:41 6649 latex environme nt,medica tion other moderate Not available 10/09/2022 48960 91 RxNorm Marily locke [facility] 3 16:13:44 Medications Name Sig Start Date Stop Date Status Note LastModified by Organization Details LastModified Time Prescript ion - Prior Authoriza tion Request 12/07 completed Not Available Not Available Not Available diclofena c 3 % topical gel APPLY TO LESION AREAS 2 TIMES PER DAY 03/14 completed Not Available Not Available Not Available prednison e 10 mg tablet TAKE 4 TABS X 2 DAYS 3 TABS X 2 DAYS 2 TABS X 2 DAYS 1 TABS X 2 DAYS 11/24 completed Not Available Not Available Not Available doxycycli ne hyclate 100 mg capsule TAKE 1 CAPSULE BY MOUTH TWICE DAILY WITH FOOD AND GLASS OF WATER AND WATER FOR 5 DAYS 03/30 completed Not Available Not Available Not Available azithromy aquilino 250 mg tablet TAKE 2 TABLETS (500 MG) BY ORAL ROUTE ONCE DAILY FOR 1 DAY THEN 1 TABLET (250 MG) BY ORAL ROUTE ONCE DAILY FOR 4 DAYS active Not Available Not Available No t Available tizanidin e 4 mg tablet TAKE 1 TABLET BY MOUTH THREE TIMES DAILY FOR 14 DAYS 01/15 completed Not Available Not Available Not Available hydrocodo ne 5 mg-acetam inophen 325 mg tablet Take 1 tablet every 4-6 hours by oral route as directed for 7 days. 12/08 completed Not Available Not Available Not Available alclometa sone 0.05 % topical cream 02/18 completed Not Available Not Available Not Available diphenoxy late-atro pine 2.5 mg-0.025 mg tablet TAKE 1 TABLET BY MOUTH THREE TIMES A DAY FOR 90 DAYS active Not Available Not Available No t Available allopurin ol 100 mg tablet TAKE 1 TABLET BY MOUTH EVERY DAY active Not Available Not Available No t Available tramadol 50 mg tablet TAKE 1 TABLET BY MOUTH EVERY 6 HOURS NEEDED FOR 7 DAYS 12/07 completed Not Available Not Available Not Available ketorolac 0.5 % eye drops 02/18 completed Not Available Not Available Not Available Nitro-Bid 2 % transderm al ointment use prn 03/21 completed Not Available Not Available Not Available oxycodone -acetamin ophen 5 mg-325 mg tablet TAKE 1 TABLET BY MOUTH EVERY 6 HOURS FOR 7 DAYS 01/15 completed Not Available Not Available Not Available lorazepam 0.5 mg tablet Take 1 tablet as needed by oral route for 1 day. 08/26 completed Not Available Not Available Not Available hydrocodo ne 7.5 mg-acetam inophen 325 mg tablet TAKE 1 TABLET EVERY 6 HOURS BY ORAL ROUTE FOR 7 DAYS. 01/15 completed Not Available Not Available Not Available cephalexi n 500 mg capsule TAKE 1 CAPSULE BY MOUTH THREE TIMES A DAY FOR 7 DAYS 12/07 completed Not Available Not Available Not Available gabapenti n 300 mg capsule Take 1 capsule twice a day by oral route for 30 days. 12/12 completed Not Available Not Available Not Available allopurin ol 300 mg tablet TAKE 1 TABLET BY MOUTH EVERY DAY active Not Available Not Available No t Available mupirocin 2 % topical ointment APPLY TO THE AFFECTED AREA TWICE DAILY DIRECTED active Not Available Not Available No t Available zolpidem 5 mg tablet Take 1 tablet every day by oral route for 10 days. 03/30 completed Not Available Not Available Not Available gabapenti n 100 mg capsule 02/23 completed Not Available Not Available Not Available methylpre dnisolone 4 mg tablets in a dose pack TAKE 6 TABLETS ON DAY 1 DIRECTED ON PACKAGE AND DECREASE BY 1 TAB EACH DAY FOR A TOTAL OF 6 DAYS 12/07 completed Not Available Not Available Not Available colchicin e 0.6 mg tablet Take 2 tablets every day by oral route for 5 days. 08/26 completed Not Available Not Available Not Available diazepam 5 mg tablet TAKE 1 TABLET 1 HOUR BEFORE MRI APPOINTM ENT AND MAY REPEAT IF INEFFECT ANIYA 10/08 completed Not Available Not Available Not Available nabumeton e 500 mg tablet Take 2 tablets every day by oral route with meals for 30 days. 02/18 completed Not Available Not Available Not Available oxycodone 5 mg tablet Take 1 tablet twice a day by oral route for 30 days. 06/11 completed 7.5 mg daily per patient Not Available Not Available Not Available Vitamin B12 100 mcg tablet Take 1 tablet every day by oral route. 06/11 completed Not Available Not Available Not Available azithromy aquilino 500 mg tablet 03/21 completed Not Available Not Available Not Available Restasis 0.05 % eye drops in a dropperet te INSTILL 1 DROP INTO BOTH EYES TWICE A DAY active Not Available Not Available No t Available Boostrix Tdap 2.5 Lf unit-8 mcg-5 Lf/0.5 mL intramusc ular syringe 07/11 completed Not Available Not Available Not Available pregabali n 75 mg capsule TAKE 1 CAPSULE BY MOUTH TWICE A DAY NEEDS APPT FOR FURTHER REFILLS 02/18 completed Not Available Not Available Not Available pregabali n 100 mg capsule TAKE 1 CAPSULE BY MOUTH TWICE A DAY 04/30 completed Not Available Not Available Not Available calcium 06/11 completed Not Available Not Available Not Available Iron (ferrous sulfate) 06/11 completed Not Available Not Available Not Available allopurin ol 250mg qd active Not Available Not Available Not Available multivita min once a day active Not Available Not Available No t Available oxycodone 10 mg tablet Take 1 tablet 3 times a day by oral route as needed for 10 days. 02/03 completed Not Available Not Available Not Available diclofena c 1 % topical gel APPLY 1 G TWICE A DAY BY TOPICAL ROUTE FOR 30 DAYS. 06/11 completed Not Available Not Available Not Available Tart Multani 06/11 completed Not Available Not Available Not Available febuxosta t 40 mg tablet Take 1 tablet every day by oral route for 90 days. 06/11 completed Not Available Not Available Not Available Vitamin D3 10 mcg (400 unit) chewable tablet Take by oral route. 06/11 completed Not Available Not Available Not Available Probiotic 06/11 completed Not Available Not Available Not Available marijuana (cannabis ) 03/21 completed Not Available Not Available Not Available Shingrix (PF) 50 mcg/0.5 mL intramusc ular suspensio n, kit 07/11 completed Not Available Not Available Not Available cannabidi ol (CBD) extract 03/21 completed Not Available Not Available Not Available Plenvu 140 gram-9 gram-5.2 gram powder packs 09/25 completed Not Available Not Available Not Available Fluzone High-Dose Quad 2020- (PF) 240 mcg/0.7 mL IM syringe TO BE ADMINIST ERED BY [facility] ST FOR IMMUNIZA TION 09/25 completed Not Available Not Available Not Available Flowflex COVID-19 Antigen Home Test kit USE DIRECTED 12/07 completed Not Available Not Available Not Available allopurin ol 200 mg tablet TAKE 1 TABLET BY MOUTH EVERY DAY FOR 30 DAYS 03/19 completed Not Available Not Available Not Available Vitals Date Recorded Body height Body mass index (BMI) Body weight Heart rate Oxygen saturation Oxygen saturation in Arterial blood by Pulse oximetry Systolic blood pressure Diastolic blood pressure Provider Name and Address Organization Details Last Updated DateTime 3 153.67 cm 22.3 kg/m2 12138.7 1 g 64 /min 98 % 98 % 138 mm[Hg] 68 mm[Hg] Marily Cool [facility] 3 15:00:28 Date Recorded Body height Body mass index (BMI) Body weight Heart rate Oxygen saturation Oxygen saturation in Arterial blood by Pulse oximetry Systolic blood pressure Diastolic blood pressure Provider Name and Address Organization Details Last Updated DateTime 4 153.67 cm 23.3 kg/m2 42186.4 7 g 60 /min 99 % 99 % 152 mm[Hg] 80 mm[Hg] Joseluis Richmond, DO [address] [place], [address] [place] [address] Internal Medicine 4 11:00:49 Date Recorded Body height Body mass index (BMI) Body weight Heart rate Oxygen saturation Oxygen saturation in Arterial blood by Pulse oximetry Systolic blood pressure Diastolic blood pressure Provider Name and Address Organization Details Last Updated DateTime 4 153.67 cm 23.5 kg/m2 73017.6 3 g 75 /min 98 % 98 % 120 mm[Hg] 64 mm[Hg] Mini Winkler [facility] 4 14:01:47 Date Recorded Body height Body mass index (BMI) Body weight Heart rate Oxygen saturation Oxygen saturation in Arterial blood by Pulse oximetry Systolic blood pressure Diastolic blood pressure Provider Name and Address Organization Details Last Updated DateTime 4 152.4 cm 23.8 kg/m2 11223.2 7 g 59 /min 96 % 96 % 128 mm[Hg] 74 mm[Hg] Marily Cool [facility] 4 11:30:09 Date Recorded Body height Body mass index (BMI) Body weight Heart rate Oxygen saturation Oxygen saturation in Arterial blood by Pulse oximetry Systolic blood pressure Diastolic blood pressure Provider Name and Address Organization Details Last Updated DateTime 4 152.4 cm 25.8 kg/m2 74409.1 9 g 76 /min 98 % 98 % 126 mm[Hg] 70 mm[Hg] Tomi Abreu [facility] 4 13:37:01 Social History Question Answer Notes LastModified by Organizat ion Details LastModified Time Tobacco Smoking Status Former Smoker Gregoria locke [facility] 11/30/2017 11:25:58 What Is Your Level Of Alcohol Consumption? Occasional 2-3 Drinks Per Day Information not available 03/21/2019 What Is Your Level Of Caffeine Consumption? Occasional Decaf Information not available 03/21/2019 What Was The Date Of Your Most Recent Tobacco Screening? 06/12/2024 [email or web address] Information not available 06/12/2024 Sex: Unknown Functional Status Question Answer Note LastModified by Organization D etails LastModified Time What is your exercise level? None Information not available 03/21/2019 Mental Status None recorded. Family History Nothing Reported. Medical History Condition Response Coronary Artery Disease N Other N Gout N Kidney Stones N Blood Diseases N Breast Cancer N Blood Transfusion N Lung Disease N Depression N COPD N Defects or Inherited Disease N Anxiety Disorder N Muscle, Joint, or Bone Problems N Obesity N Vision or Eye Problems N Arthritis N Polyps N Infertility N Mental Disorder N Cancer N Varicosities N Stroke N Endometriosis N Bladder or Kidney Problems N High Cholesterol N Liver Disease N Headaches N Fibromyalgia N Kidney Disease N Allergies/Hayfever N Heart Problems N Hospitalizations N Thyroid Problems N GI Problems N Skin Problems N Eating Disorder N Anemia N MRSA exposure N Constipation N Mental Illness N Ovarian Cancer N Diabetes N Seizures/Epilepsy N Tuberculosis N Congestive Heart Failure (CHF) N Eczema N Diverticulitis N Abuse/Domestic Violence N Asthma N Reflux/GERD N Hepatitis N Heart Disease N Pulmonary Embolism N Hypertension N Osteoporosis N Chicken Pox N Autism Spectrum Disorder (ASD) N Gynecological HistoryNo gynecological history recorded. Obstetrics History GPAL:G 0 P 0 0 0 0 Immunizations Vaccine Type Date Status Note Provider Nam e and Address Organization Details Recorded Time COVID-19, mRNA, LNP-S, PF, 30 mcg/0.3 mL dose 1 completed Valentina Gencarelle null, [facility] 12/25/2022 13:23:36 Influenza, split virus, quadrivalent, preservative 1 completed Valentina Gencarelle null, [facility] 12/25/2022 13:23:36 Tdap 8 completed Not Available [facility] 12/06/2022 17:09:46 COVID-19, mRNA, LNP-S, PF, 30 mcg/0.3 mL dose 2 [facility] 13:23:36 Influenza, split virus, quadrivalent, preservative 2 completed Valentina Gencarelle null, [facility] 12/25/2022 13:23:36 zoster live 8 completed Not Available [facility] 12/06/2022 17:09:46 Influenza, split virus, quadrivalent, preservative 9 completed [facility]/25/2022 13:23:36 Influenza, split virus, quadrivalent, preservative 0 completed Valentina Gencarelle null, [facility] 12/25/2022 13:23:36 COVID-19, mRNA, LNP-S, PF, 30 mcg/0.3 mL dose 1 completed [facility] 12/25/2022 13:23:36 COVID-19, mRNA, LNP-S, PF, 30 mcg/0.3 mL dose 1 completed [facility] 12/25/2022 13:23:36 zoster,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 gotten betterlong detailed discussion re her sx Joseluis Richmond DO [address] [place], [address], [facility] 06/12/2024 14:03:33 OBGyn Episode No OBEpisode recorded.
--- OUTSIDE RECORDS SUMMARY | 2024-07-21 16:34 | XMS_ITS | Clinical Summary ---
Author Organization [facility] Address [address] [place] [address] Care Team Providers Care Laboratory Equipment Cleaner Name Role Phone Joseluis Nicole Primary Care Provider [phone] Allergies Active Allergy Reactions Criticality Noted Date Comments Meloxicam GI Intolerance/Nausea/Vomiti ng,Other (See Comments) Low 10/06/2012 cramping Nsaids GI Intolerance/Nausea/Vomiti ng Low 05/13/2023 GI Upset Succinylcholine Myalgia/Myositis/Art hralg ia/Arthritis,Other (See Comments) Low 07/12/2020 Prolonged paralysis (1-2 days) Tizanidine Palpitations Medium 09/27/2022 Other reaction(s): Confusion Medications Medication Sig Dispensed Refills Start Date End Date Status acetaminophen (TYLENOL) 500 MG tablet Take 1 tablet (500 mg total) by mouth 3 times daily (every 8 hours) as needed. Active allopurinol (ZYLOPRIM) 100 mg tablet Take 1 tablet (100 mg total) by mouth daily. 04/28/2023 Active allopurinol (ZYLOPRIM) 300 MG tablet Take 1 tablet (300 mg total) by mouth daily. 04/20/2023 Active Bacillus Coagulans-Inulin (Probiotic) 1-250 BILLION-MG Cap Take 250 mg by mouth. Active calcium carbonate (CALTRATE) 1500 (600 Ca) MG tablet 1 tablet (1,500 mg total) daily. Active cholecalciferol (Vitamin D-[address]) 25 MCG (1000 UT) tablet 1 tablet Active Restasis 0.05 % ophthalmic emulsion Administer 1 drop to both eyes 2 (two) times a day. 04/21/2023 Active diphenoxylate-atropi ne (LOMOTIL) 2.5-0.025 MG per tablet 02/04/2023 Active LUTEIN PO Take 1 tablet by mouth daily. Active ferrous Sulfate dried (SLOW FE) 160 (50 Fe) MG Tab CR Take 50 mg by mouth every morning with breakfast. Active diclofenac (VOLTAREN) 1 % gel Apply topically 4 (four) times a day. Use dosing card to measure dose. Apply to entire affect area. Active Family History Relation Name Status Comments Father Mother Social History Tobacco Use Types Packs/Day Years Used Date Smoking Tobacco: Former Cigarettes Smokeless Tobacco: Never Tobacco Cessation:Counseling Given: Not Answered Alcohol Use Standard Drinks/Week Comments Yes 2 (1 standard drink = 0.6 oz pur e alcohol) Sex and Gender Information Value Date Recorded Sex Assigned at Female 04/29/2023 1:57 PM EDT Gender Identity Female 04/29/2023 1:57 PM EDT Sexual Orientation Heterosexual (straight) 04/29 1:57 PM EDT Last Filed Vital Signs Vital Sign Reading Time Taken Comments Blood Pressure 130/72 05/13/2023 1:04 PM EST Pulse 68 05/13/2023 1:04 PM EST Temperature - - Respiratory Rate - - Oxygen Saturation 99% 05/13/2023 1:04 PM EST Inhaled Oxygen Concentration - - Weight 51.3 kg (113 lb) 05/13/2023 1:04 PM EST Height 154.9 cm (5' 1 ) 05/13/2023 1:04 PM EST Body Mass Index 21.35 05/13/2023 1:04 PM EST Plan of Treatment Health Maintenance Due Date Last Done Comments DTaP/Tdap/Td Vaccines (1 - Tdap) 1961 Pneumococcal Vaccines 50+ (1 of 1 - PCV) 1992 Zoster (Shingles) Vaccine (1 of 2) 1992 DXA Bone Density (Females,Ages 65 and older) 2007 RSV Vaccine 60 years and older and Patients (1 - 1-dose 75+ series) 2017 Influenza Vaccine 01/27/2024 04/14/2022, , 02/19/2020, Additional history exists COVID-19 Vaccine ( season) 2024 04/29/2022, 03/18/2021, 08/28/2020, Additional history exists Hepatitis B Vaccines Aged Out No long er eligible based on patient's age to complete this topic Care Teams Laboratory Equipment Cleaner Relationship Specialty Start Date End Date Joseluis Nicole DO [address] [facility] [place] [address] [place] [address] PCP - General Internal Medicine 04/29/23
--- OUTSIDE RECORDS SUMMARY | 2024-07-21 16:34 | XMS_ITS | Encounter Summary ---
Author Organization [facility] Address [address] [place] [address] Care Team Providers Care Idea Worker Name Role Phone Joseluis Nicole DO Primary Care Provider [phone] Encounter Details Date Type Department Care Team (Late st Contact Info) Description 04/29/2023 Scanned Document [facility] RHEUMATOLOGY SCAN Rheumatology, Scan Social History Tobacco Use Types Packs/Day Years Used Date Smoking Tobacco: Never Assessed Sex and Gender Information Value Date Recorded Sex Assigned at Female 04/29/2023 1:57 PM EDT Gender Identity Female 04/29/2023 1:57 PM EDT Sexual Orientation Heterosexual (straight) 04/29 1:57 PM EDT documented as of this encounter Plan of Treatment Not on file documented as of this encounter Visit Diagnoses Not on filedocumented in this encounter Care Teams Idea Worker Relationship Specialty Start Date End Date Joseluis Nicole DO [address] [place] [address] [place] [address] PCP - General Internal Medicine 04/29/23 documented as of this encounter
--- OUTSIDE RECORDS SUMMARY | 2024-07-21 16:34 | XMS_ITS ---
[facility] Name [facility] Organization Unknown History of Medication Use Medication Directions Dispensed Refills Start Date End Date Stat us acetaminophen (TYLENOL) 500 MG tablet Take 1 tablet (500 mg total) by mouth 3 times daily (every 8 hours) as needed. active allopurinol (ZYLOPRIM) 100 mg tablet Take 1 tablet (100 mg total) by mouth daily. 04/28/2023 active Bacillus Coagulans-Inulin (Probiotic) 1-250 BILLION-MG Cap Take 250 mg by mouth. active allopurinol (ZYLOPRIM) 300 MG tablet Take 1 tablet (300 mg total) by mouth daily. 04/20/2023 active calcium carbonate (CALTRATE) 1500 (600 Ca) MG tablet 1 tablet (1,500 mg total) daily. active Problems Problem Status Onset Date Problem Type Date of Resolution Source Right foot pain active EncounterDiagnosisAct CCT Primary osteoarthritis involving multiple joints active EncounterDiagnosisAct CCT
--- OUTSIDE RECORDS SUMMARY | 2024-07-21 16:34 | XMS_ITS | Encounter Summary ---
Author Organization [facility] Address [address] [place] [address] Care Team Providers Care Liquid Fertilizer Servicer Name Role Phone Joseluis Nicole DO Primary Care Provider [phone] Encounter Details Date Type Department Care Team (Late st Contact Info) Description 05/13/2023 Scanned Document [facility] RHEUMATOLOGY SCAN Rheumatology, Scan Social History Tobacco Use Types Packs/Day Years Used Date Smoking Tobacco: Former Cigarettes Smokeless Tobacco: Never Alcohol Use Standard Drinks/Week Comments Yes 2 [...] on filedocumented in this encounter Care Teams Liquid Fertilizer Servicer Relationship Specialty Start Date End Date Joseluis Nicole DO [address] [facility] [place] [address] [place] [address] PCP - General Internal Medicine 04/29/23 documented as of this encounter
== END 2024-07-21 15:44 | disposition home or self-care (01) ==
LOC: HO.RESP 15:43
PROVIDERS: PCP Internal Medicine; Visit Provider Internal Medicine
DX: R06.09 Other forms of dyspnea (principal)
CPT/HCPCS: 94010; 94640; 94727; 94729

== ENCOUNTER → 2024-07-21 15:48 | Outpatient (BNV) | payer MEDICARE, SELFPAY | PROVIDERS: PCP Internal Medicine; Visit Provider Hospitalist | DX: R06.09 Other forms of dyspnea (principal) | CPT/HCPCS: 94060; 94727; 94729 ==

== ENCOUNTER 2024-08-25 08:46 | Outpatient (REF) | payer MEDICARE, SELFPAY ==
--- OUTSIDE RECORDS SUMMARY | 2024-08-25 09:06 | XMS_ITS | Clinical Summary ---
Author Organization [facility] Address [address] [place] [address] Care Team Providers Care Filling Station Equipment Mechanic Name Role Phone Joseluis Nicole Primary Care Provider Allergies Active Allergy Reactions Criticality Noted Date [...] age to complete this topic Care Teams Filling Station Equipment Mechanic Relationship Specialty Start Date End Date Joseluis Nicole DO [address] [facility] [place] [address] [place] [address] PCP - General Internal Medicine 04/29/23
--- OUTSIDE RECORDS SUMMARY | 2024-08-25 09:06 | XMS_ITS | Data Portability ---
Author Organization [facility], Home Service Address [address] [place] [address] Assessment Encounter Date Assessment Date Assessment LastModified by Organization Details LastModified Time 06/11/2023 06/11/2023 [id number] [place] [address] (AIRCRAFT MAINTENANCE TECHNICIAN) : MDM LOW MUST MEET 2 OF [...] COVERED Not available 06/11/2023 15:18:58 12/08/2023 12/08/2023 [id number] [place] [address] (AIRCRAFT MAINTENANCE TECHNICIAN) MDM HIGH MUST MEET 2 OUT OF [...] COVERED Not available 12/08/2023 14:39:30 06/12/2024 06/12/2024 [address] [place] [address] (AIRCRAFT MAINTENANCE TECHNICIAN) MDM MODERATE MUST MEET 2 OUT OF [...] Not available Not available Not available Lab ESR (erythroc yte sedimenta tion rate), blood 2023 [facility], [address] [place] [address], [id number], 12/20/2023 11:55:40 C-reactiv e protein, quantitat aniya, serum or plasma 2023 024 [facility], [address] [place] [address], [address], 12/20/2023 11:55:40 CBC w/ auto diff 2023 024 [facility], [address] [place] [address], [address], 12/20/2023 11:55:40 CMP, serum or plasma 2023 024 [facility], [address] [place] [address], [address], 12/24/2023 11:13:19 uric acid, serum or plasma 2023 024 [facility], [address] [place] [address], [address], 12/08/2023 14:41:46 iron + TIBC + ferritin, serum 2023 024 [facility], [address] [place] [address], [id number], 12/15/2023 08:36:09 CBC 2023 024 [facility], [address] [place] [address], [address], 12/08/2023 14:41:46 iron + TIBC + ferritin, serum 2023 024 [facility], [address] [place] [address], [address], 01/10/2024 11:28:05 iron + TIBC + ferritin, serum 2023 024 [facility], [address] [place] [address], 0[address], 06/09/2024 10:32:23 iron + TIBC + ferritin, serum 2023 025 [facility], [address] [place] [address], [address], 06/09/2024 10:32:23 CMP, serum or plasma 2023 024 [facility], [address] [place] [address], 7[address], 10/25/2023 11:37:05 CBC 2023 024 [facility], [address] [place] [address], 022[address], 12/24/2023 11:05:36 TSH, serum or plasma 2023 024 [facility], [address] [place] [address], 6[address], 08/27/2023 11:27:58 vitamin D, 25-hydrox y, total, serum 2023 [facility], [address] [place] [address], [address], 08/27/2023 11:27:58 magnesium , serum or plasma 2023 [facility], [address] [place] [address], [address], 08/27/2023 11:27:58 lipid panel, blood 2023 [facility], [address] [place] [address], [address], 08/27/2023 11:27:58 Referral None recorded. Procedures None recorded. Surgeries None recorded. Imaging XR, sinuses 2023 024 [facility] (Imaging), [address] [place] [address], [id number], 01/17/2024 08:21:48 XR, chest, 2 view 2023 [facility] Central Scheduling, [address] [place] [address], [address], 01/03/2024 08:51:10 Medication Orders azithromy aquilino 250 mg tablet 2023 024 [facility]armacy #[id number], [address] [place], [address], 06/12/2024 14:00:29 Patient TargetsNo targets recorded. Patient Instructions Encounter Date Encounter Id Patient Instructions Last Modified By Organization Details Last Modified Time 12/08/2023 [id number] gout: care instructions Not available 12/08/2023 14:40:25 prediabetes: car e instructions Not available 12/08/2023 14:40:25 allergies: care instructions Not available 12/08/2023 14:40:25 high cholesterol : care instructions Not available 12/08/2023 14:40:25 06/12/2024 [id number] pulse oximetry* Not available 06/12/2024 14:00:27 cough: care instructions Not available 06/12/2024 14:00:27 complete PFT w/ post bronchodilator spirometry* hrubner Not available 06/19/2024 08:27:37 Reason for Referral None Reported. Results Created Date Observation Date Name Description Value Unit Range Abnormal Flag Note LastModifiedBy Organization Detail LastModifiedTime 06/12/2006/12/2024 pulse oxime try* Result 98% Not Available [facility] [address], [place], [address], 06/12/2024 08:39:08 01/10/20 24 12/23/2023 XR, chest , 2 view No observ ation record ed. [address] (Medical Records) [address] [place], [address], 01/10/2024 15:50:39 01/19/20 24 12/23/2023 XR, sinus es No observ ation record ed. [address] (Medical Records) [address] [place], [address], 01/19/2024 15:23:28 03/07/20 24 02/11/2024 CT, sinus es, w/o contr ast No observ ation record ed. [email or web address] [facility] (Medical Records) [address] [place], [address], 03/08/2024 12:04:11 07/22/19 25 07/21/2024 compl ete PFT w/ post [facility] hodil ator crispin metry * No observ ation record ed. [facility] (Medical Records) [address] [place] [address], [address], 07/23/2024 20:57:47 Result Notes None recorded. Problems Name Problem SNOMED Code Status Onset Date Resolution Date Notes Provider Name and Address Organization Details Recorded Time Lumbar arthritis 201231174 Active 2018 Not Available [facility] 0 09:56:16 Lumbar spondylol isthesis 615212101261 102 Active 2020 Joseluis Richmond DO [address] [place] [address], [address], [facility] 1 15:52:45 Bradycard ia 50789775 Active 2020 Joseluis Richmond DO [address] [place] [address], [address], [facility] 1 12:36:16 Numbness of face 886841144 Active 2021 Joseluis Richmond DO [address] [place] [address], [address], [facility] 2 12:11:58 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 Joseluis Richmond DO [address] [place] [address], [address], [facility] 2 12:23:03 Irritable bowel syndrome 97750272 Active 2017 Not Available [facility] 0 09:56:16 Diverticu litis of sigmoid colon 167965388 Active 2017 Not Available [facility] 0 09:56:16 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 32099616 Active 2017 Not Available [facility] 0 09:56:16 Hypertens aniya disorder 09481831 Active 2017 Not Available [facility] 0 09:56:16 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 555833689 Active 2017 Not Available [facility] 0 09:56:16 Gastroeso phageal reflux disease 008478463 Active 2017 Not Available [facility] 0 09:56:16 Hyperlipi demia 26639516 Active 2017 Not Available [facility] 0 09:56:16 Cataract 199651765 Active 2017 Not Available [facility] 0 09:56:16 Acute gout 440694202 Active 2022 BLAZE PAULA [address] [place], [address], [facility] 3 12:20:30 Impaired fasting glycemia 248070570 Active 2022 BLAZE PAULA [address] [place], [address], [facility] 3 16:27:27 Dry eyes 294089823 Active 2022 BLAZE PAULA [address] [place], [address], [facility] 3 16:38:13 Gout 28929391 Active 2022 BLAZE PAULA [address] [place], [address], [facility] 3 16:43:02 Referred otalgia 05175473 Active 2022 Joseluis Richmond, DO [address] [place], [address], [facility] 3 17:13:46 Degenerat ion of lumbar intervert ebral disc 13593480 Active 2022 BLAZE PAULA [address] [place], [address], [facility] 3 11:53:57 Degenerat aniya lumbar spinal stenosis 259556349 Active 2022 BLAZE PAULA [address] [place], [address], [facility] 3 14:32:34 Spinal stenosis of lumbar region 63908983 Active 2022 BLAZE PAULA [address] [place] [address], [address], [facility] 3 14:26:37 Constipat ion 03446846 Active 2022 Joseluis Richmond DO [address] [place] [address], [address], [facility] 3 14:07:04 Primary gout 93515015 Active 2022 Joseluis Richmond, [address] [place] [address], [address], [facility] 3 17:56:11 Unintenti onal weight loss 328500391 Active 2022 Joseluis Richmond DO [address] [place] [address], [address], [facility] 3 14:15:19 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 BLAZE PAULA [address] [place] [address], [address], [facility] 3 14:58:09 Foot pain 90408563 Active 2022 BLAZE PAULA [address] [place] [address], [address], [facility] 3 12:20:38 Foot pain 08481039 Active 2022 BLAZE PAULA [address] [place] [address], [address], [facility] 3 12:25:48 Iron deficienc y anemia 35003153 Active 2022 BLAZE PAULA [address] [place] [address], [address], [facility] 3 12:25:53 Inflammat ion of lumbar spine joint 225793168 Active 2023 Joseluis Richmond DO [address] [place] [address], [address], [facility] 4 11:19:27 Squamous cell carcinoma 635072678 Active 2023 Joseluis Richmond DO [address] [place] [address], [address], [facility] 4 11:27:37 Allergic rhinitis 57409331 Active 2023 Joseluis Richmond DO [address] [place] [address], [address], [facility] 4 14:37:51 Cough 03622488 Active 2023 BLAZE PAULA [address] [place] [address], [address], [facility] 4 11:40:57 Nasal congestio n 59090831 Active 2023 BLAZE PAULA [address] [place] [address], [address], [facility] 4 11:43:36 Frontal sinus pain 984542984 Active 2023 BLAZE PAULA [address] [place] [address], [address], [facility] Medicine 4 11:46:05 Bilateral earache 146076863 Active 2023 BLAZE PAULA [address] [place] [address], [address], [facility] Medicine 4 11:50:04 Chronic sinusitis 19284351 Active 2023 BLAZE PAULA [address] [place] [address], [address], [facility] 4 11:51:43 Anemia 301341004 Active 2023 BLAZE PAULA [address] [place] [address], [address], [facility] 4 15:52:58 Dyspnea on exertion 37636383 Active 2023 Joseluis Richmond DO [address] [place] [address], [address], [facility] 4 13:57:04 Osteoarth ritis 885525377 Active 2017 Not Available [facility] 0 09:56:16 Osteoarth ritis of wrist 571444448 Active 2017 Not Available [facility] 0 09:56:16 Problem Notes None recorded. Procedures Surgical History Date Name Laterality Status Provider Name and Address Organization Details Recorded Time Colonoscopy completed [facility] 04/12/2019 14:32:11 Laparoscopy completed [facility] 04/12/2019 14:32:11 Imaging Results Imaging Date Name Status LastModified by Organization Details LastModified Time 12/23/2023 XR, chest, 2 view completed [address] (Medical Records) [address] [place] [address], [address], 01/10/2024 15:50:39 12/23/2023 XR, sinuses completed [address] (Medical Records) [address] [place], [address], 01/19/2024 15:23:28 02/11/2024 CT, sinuses, w/o contrast completed [facility] (Medical Records) [address] [place], [address], 03/08/2024 12:04:11 07/21/2024 complete PFT w/ post bronchodilator spirometry* completed [address] (Medical Records) [address] [place], [address], 07/23/2024 20:57:47 Procedure Notes None recorded. Medical Equipment None Reported. Allergies Allergen ID Allergen Name Allergen Category Reaction Reaction Severity Criticality Documentation Date Start Date Code Code System Note Provider Name and Address Organization Details Recorded Time 4641 tizanidin e medicatio n confusion Not available Not available 01/15/2021 87239 RxNorm react ed with [place] nikki Richmond DO [address] [place], [address], [facility] 1 14:30:31 599 meloxicam medicatio n Not available Not available Not available 09/15/2017 48839 RxNorm Gregoria locke [facility] 8 10:29:17 600 Non-stero idal anti-infl ammatory agent (product) medicatio n Not available Not available Not available 09/15/2017 52493 005 SNOMED Gregoria locke [facility] 8 10:29:24 601 succinylc holine Not available Not available Not available Not available 09/15/2017 07274 RxNorm Gregoria locke [facility] 8 10:29:41 6649 latex environme nt,medica tion other moderate Not available 10/09/2022 00633 91 RxNorm Marily Gilljorge locke [facility] 3 16:13:44 Medications Name Sig Start Date [...] TAKE 1 TABLET BY MOUTH EVERY DAY 2024 active Not Available Not Available Not Avai lable tramadol 50 mg tablet TAKE 1 TABLET [...] Not Available Not Available Fluzone High-Dose Quad 2020 (PF) 240 mcg/0.7 mL IM syringe TO BE ADMINIST ERED BY [employer] FOR IMMUNIZA TION 09/25 completed Not Available [...] Updated DateTime 3 153.67 cm 22.3 kg/m2 73182.7 1 g 64 /min 98 % 98 % 138 mm[Hg] 68 mm[Hg] Marily Cool [facility] 3 15:00:28 Date Recorded Body height Body mass index (BMI) Body weight Heart rate Oxygen saturation Oxygen saturation in Arterial blood by Pulse oximetry Systolic blood pressure Diastolic blood pressure Provider Name and Address Organization Details Last Updated DateTime 4 153.67 cm 23.3 kg/m2 99068.4 7 g 60 /min 99 % 99 % 152 mm[Hg] 80 mm[Hg] Joseluis Richmond, DO [address] [place], [address] , [facility] 4 11:00:49 Date Recorded Body height Body mass index (BMI) Body weight Heart rate Oxygen saturation Oxygen saturation in Arterial blood by Pulse oximetry Systolic blood pressure Diastolic blood pressure Provider Name and Address Organization Details Last Updated DateTime 4 153.67 cm 23.5 kg/m2 56961.6 3 g 75 /min 98 % 98 % 120 mm[Hg] 64 mm[Hg] Mini Winkler [facility] 4 14:01:47 Date Recorded Body height Body mass index (BMI) Body weight Heart rate Oxygen saturation Oxygen saturation in Arterial blood by Pulse oximetry Systolic blood pressure Diastolic blood pressure Provider Name and Address Organization Details Last Updated DateTime 4 152.4 cm 23.8 kg/m2 82520.2 7 g 59 /min 96 % 96 % 128 mm[Hg] 74 mm[Hg] Marily Gillmond [facility] 4 11:30:09 Date Recorded Body height Body mass index (BMI) Body weight Heart rate Oxygen saturation Oxygen saturation in Arterial blood by Pulse oximetry Systolic blood pressure Diastolic blood pressure Provider Name and Address Organization Details Last Updated DateTime 4 152.4 cm 25.8 kg/m2 98676.1 9 g 76 /min 98 % 98 % 126 mm[Hg] 70 mm[Hg] Tomi Abreu [facility] 4 13:37:01 Social History Question Answer Notes LastModified by Organizat ion Details LastModified Time Tobacco Smoking Status Former [facility] 11/30/2017 11:25:58 What Is [...] History Condition Response Coronary Artery Disease N Gout N Other N Kidney Stones N Blood Diseases N Blood Transfusion N Breast Cancer N Lung Disease N Depression N COPD N Defects or Inherited Disease N Anxiety Disorder N Muscle, Joint, or Bone Problems N Obesity N Vision or Eye Problems N Arthritis N Infertility N Polyps N Mental Disorder N Cancer N Stroke N Varicosities N Endometriosis N Bladder or Kidney Problems N High Cholesterol N Liver Disease N Fibromyalgia N Headaches N Kidney Disease N Allergies/Hayfever N Heart Problems N Hospitalizations N Thyroid Problems N GI Problems N Eating Disorder N Skin Problems N Anemia N MRSA exposure N Constipation N Mental Illness N Diabetes N Ovarian Cancer N Seizures/Epilepsy N Tuberculosis N Congestive Heart Failure (CHF) N Eczema N Abuse/Domestic Violence N Diverticulitis N Asthma N Reflux/GERD N Hepatitis N Heart Disease N Pulmonary Embolism N Hypertension N Chicken Pox N Autism Spectrum Disorder (ASD) N Osteoporosis N Gynecological HistoryNo gynecological history recorded. Obstetrics History GPAL:G 0 P 0 0 0 0 Immunizations Vaccine Type Date Status Note Provider Nam e and Address Organization Details Recorded Time COVID-19, mRNA, LNP-S, PF, 30 mcg/0.3 mL dose 1 completed [facility] 12/25/2022 13:23:36 Influenza, split virus, quadrivalent, preservative 1 completed Valentina Gencarelle [facility] 12/25/2022 13:23:36 Tdap 8 completed Not Available [facility] 12/06/2022 17:09:46 COVID-19, mRNA, LNP-S, PF, 30 mcg/0.3 mL dose 2 completed Valentina Gencarelle [facility] 12/25/2022 13:23:36 Influenza, split virus, quadrivalent, preservative 2 completed Valentina Gencarelle [facility] 12/25/2022 13:23:36 zoster live 8 completed Not Available [facility] 12/06/2022 17:09:46 Influenza, split virus, quadrivalent, preservative 9 completed Valentina Gencarelle [facility] 12/25/2022 13:23:36 Influenza, split virus, quadrivalent, preservative 0 completed Valentina Gencarelle null, [facility] 12/25/2022 13:23:36 COVID-19, mRNA, LNP-S, PF, 30 mcg/0.3 mL dose 1 completed Valentina Gencarelle null, [facility] 12/25/2022 13:23:36 COVID-19, mRNA, LNP-S, PF, 30 mcg/0.3 mL dose 1 completed Valentina Gencarelle null, [facility] 12/25/2022 13:23:36 zoster, unspecified formulation 5 completed Valentina Gencarelle null, [facility] 12/25/2022 13:23:36 pneumococcal polysaccharide PPV23 6 completed Valentina Gencarelle [facility], [facility] 12/25/2022 13:23:36 Past Encounters Encounter ID Performer Location Encounter Start Date Encounter Closed Date Diagnosis/Indication Diagnosis SNOMED-CT Code Diagnosis ICD10 Code Diagnosis Note [id number] [facility] [address] [facility] [address] 11/30/2017 11:17:02 11/30/2017 12:18:59 Adult health examination 183817536 Z00.01 noted inability to take nsaids and is in constant pain suggest cont tylenol has seen rheumatolo sandeep who said her issue is only OA and not an active disease Active or passive immunization 225559937 Z23 Osteoarthritis 462662144 M19.90 will try pain med at hs [id number] Joseluis Richmond [facility] [address] [facility],[place] [address] 02/23/2018 14:29:32 02/23/2018 15:43:37 Hypertensive disorder 75805768 I10 Gastroesop hageal reflux disease 887609224 K21.9 has been stable now is monica pomeprazol e takes occ zantac Hyperlipidemia 78073729 E78.5 will cont to monitor if med needed Osteoarthritis 436822145 M19.90 will try pain med at hs also will need xray of hips percy due to severe pain at level ot right hip inner aspect Osteoarthr itis of wrist 883607156 M19.039 trial to get diclofenac 3% Pain in ri ght hip joint 3641806381 88456 M25.551 xray as nioted Fatigue 50852625 R53.83 [id number] Joseluis Richmond [facility] [address] [facility],[place] [address] 03/14/2018 14:12:54 03/14/2018 14:56:12 Hypertensive disorder 14788534 I10 doing well overall no issuews discussed lab resul;ts at length and is doing great Osteoarthritis 843035398 M19.90 will try pain med at hs also will need xray of hips percy due to severe pain at level ot right hip inner aspect discussion re rheumatolo gist recc for gabapentin will be seeing back in 3 mo 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 11724912 M50.30 stable at this time [id number] Joseluis Richmond [facility] [address] [facility],[place] [address] 07/11/2018 13:25:07 07/11/2018 14:14:46 Hypertensive disorder 15530854 I10 doing well overall no issuews discussed lab resul;ts at length and is doing great Osteoarthritis 761352402 M19.90 will be seeing a ortho for her wrists and see if it is viable to get surg will try lyrica will be seeing back in 3 mo will recc she try the diclofenac 3% lotion and get a RX from rheum Hyperlipidemia 95173065 E78.5 will cont to monitor if med needed [id number] Joseluis Richmond [facility] [address] [facility],[place] [address] 12/12/2018 13:24:57 12/12/2018 13:59:29 Hypertensive disorder 60347483 I10 doing well denies any issues with her med home bp stable Hyperlipidemia 74669282 E78.5 will cont to monitor if med needed after we get lab work next visit Bilateral carpal tunnel syndrome 7154704742 1082758 G56.03 dr earl is going to do 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 59426752 M50.30 will stop the lyrica and see if it was working and let me know if she will stay on or off if its been helping julio increase the dose too also will have her get some PT Lumbar arthritis 7173738 01 M46.96 PT refer Bilateral wrist pain 089 9397116 6086035 M25.532 [id number] Joseluis Richmond [facility] [address] [facility],[place] [address] 03/21/2019 11:56:26 03/21/2019 12:32:55 Adult health examination 579233429 Z00.01 will try the nabumetone 500mg 1 po daily consider trying the prilosec and will let me know if it is helping and she will increase the dose accordingl y has seen rheumatjessica hopkins who said her issue is only OA and not an active disease Active or passive immunization 347384218 Z23 Degenerati on of lumbar intervertebral disc 21698278 M51.36 ongoing pain and discomfort with signif loss of motor tone to paraverteb has palp pain to bilat SI joints as well pt is ambulating now with a significan t stoop in her posture we will try to obtain a brace for her lower lumbar an SI joint [id number] September DUY García [facility] [address] [facility], [place] [address] 04/12/2019 14:10:01 04/12/2019 15:10:15 Pre-surgery evaluation 104383933 Z01.818 clear for cataract procedure Bilateral cataracts 9572 2004 H26.9 Essential hypertension 24971190 I10 stable diet/exerc ise controlled [id number] Joseluis Richmond [facility] [address] [facility],[place] [address] 06/16/2019 11:58:47 06/16/2019 12:39:35 Pre-surgery evaluation 803476724 Z01.818 patient is currently cleared for the proposed cataract surgery and according to the 2017 ACC revised cardiac risk profile she is a LOW RISK for the procedure [id number] Joseluis Richmond [facility] [address] [facility],[place] [address] 10/30/2019 11:28:17 10/30/2019 12:13:16 Lumbar arthritis 186164312 M46.96 PT refer will try increasing the dose and see if her back pain is improved Hypertensive disorder 38 572391 I10 doing well denies any issues with her med home bp stable but now noted that she had a cotton wool spot c/w hemorrhage of retina Diverticul itis of sigmoid colon 577892493 K57.32 [place] [id number] [facility]uis [facility] Internal Medicine [address] [facility],[place] [address] 02/19/2020 10:25:37 02/19/2020 11:25:58 Hypertensive disorder 45320318 I10 doing well denies any issues with her med home bp stable but now noted that she had a cotton wool spot c/w hemorrhage of retina Lumbar arthritis 1929861 01 M46.96 PT refer will try increasing the dose and see if her back pain is improved Spinal cyrus nosis of lumbar region 86674034 M48.061 [id number] BLAZE PAULA [facility] Internal Medicine [address] [facility],[place] [address] 06/10/2020 09:05:36 06/10/2020 11:35:51 Gout 88581447 M10.9 will start on pred taper and see if improvemen t will also mail patient gout diet tips Gastroesop hageal reflux disease 945256031 K21.9 trying to avoid NSAIDs, agreed pred taper may be the safest for her [id number] Joseluis RichmondDO [facility] Internal Medicine [address] [facility],[place] [address] 09/25/2020 12:07:08 09/25/2020 14:35:06 Lumbar arthritis 509443073 M46.96 PT refer will try increasing the dose and see if her back pain is improved Hypertensive disorder 38 435786 I10 doing well denies any issues with her med home bp stable but now noted that she had a cotton wool spot c/w hemorrhage of retina Solitary sacroiliitis 23 3397907 M46.1 [facility] as they consider gin=ving her a radiofreq treatment in the meantime she is struggling withthe pain and we will relieve it Degenerati ve lumbar spinal stenosis 301000405 M48.061 as above Bilateral wrist pain 769 2215581 0560581 M25.532 [id number] Joseluis Richmond DO [facility] Internal Medicine [address] [facility], [facility] [address] 10/08/2020 11:58:43 10/08/2020 14:31:32 Active or passive immunization 445153695 Z23 is utd and has gotten her covid pfizer vacc Adult heal th examination 843192999 Z00.01 currently is stable and is doing ok but back pain had gotten better after episurals by dr busby now the pain is back and she wcn6xal to see oh she now needs to get some fbw this summer [id number] Joseluis Richmond DO [facility] Internal Medicine [address] [facility], [place] [address] 10/30/2020 15:27:18 10/30/2020 16:15:21 Lumbar spondylolisthesis 2752770615 15871 M43.16 will be undergoing a lumbar stenosis procedure on december 06 discussed this at length [id number] BLAZE PAULA [facility] Internal Medicine [address] [facility],[place] [address] 11/18/2020 13:27:16 11/18/2020 14:24:38 Pre-surgery evaluation 669538521 Z01.818 The patient was seen in the office today for pre-op evaluation . All medical conditions on patient's problem list were addressed and are currently stable, no interventi on needed at this time. Based on history and physical performed, the patient is cleared for surgery. 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 3256314946 50514 G56.22 she will use ice for now and if =it gets worse she will call for referral Hypertensive disorder 38 962105 I10 doing well denies any issues with her med home bp stable but now noted that she had a cotton wool spot c/w hemorrhage of retina [id number] Joseluis Richmond DO [facility] Internal Medicine [address] [facility],[place] [address] 02/17/2021 12:12:09 02/17/2021 13:52:57 Cobalamin deficiency 214147191 E53.8 will try a supplemnt for this and rechk in 2 months Hypertensive disorder 38 541446 I10 doing well denies any issues with her med home bp stable but now noted that she had a cotton wool spot c/w hemorrhage of retina Bradycardia 34321780 R00 .1 we will rechk her after the test is done Headache 52791385 R51.9 relates does not feel like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
--- OUTSIDE RECORDS SUMMARY | 2024-08-25 09:06 | XMS_ITS | Encounter Summary ---
Author Organization [facility] Address [address] [place] [address] Care Team Providers Care Coastal Tug Mate Name Role Phone Joseluis Nicole DO Primary Care Provider [phone] Encounter Details Date Type Department Care Team (Late st Contact Info) Description 04/29/2023 Scanned Document [facility] RHEUMATOLOGY SCAN Rheumatology, Scan Social History [...] on filedocumented in this encounter Care Teams Coastal Tug Mate Relationship Specialty Start Date End Date Joseluis Nicole DO [address] [facility] [place] [address] [place] [address] PCP - General Internal Medicine 04/29/23 documented as of this encounter
--- OUTSIDE RECORDS SUMMARY | 2024-08-25 09:06 | XMS_ITS | Encounter Summary ---
Author Organization [facility] Address [address] [place] [address] Care Team Providers Care Framer Name Role Phone Joseluis Nicole DO Primary Care Provider [phone] Encounter Details Date Type Department Care Team (Late st Contact Info) Description 05/13/2023 Scanned Document [facility] RHEUMATOLOGY SCAN Rheumatology, Scan Social History [...] on filedocumented in this encounter Care Teams Framer Relationship Specialty Start Date End Date Joseluis Nicole DO [address] [facility] [place] [address] [place] [address] PCP - General Internal Medicine 04/29/23 documented as of this encounter
[2024-08-25 13:37] LABS: MANUAL DIFF FLAG NO
[2024-08-25 13:43] LABS: Basophils Absolute Auto 0.1 X10*3/uL (0.0-0.2); Basophils Percent Auto 1.4 % (0-2); Eosinophils Absolute Auto 0.1 X10*3/uL (0.0-0.4); Hematocrit 36.9 % (37.0-47.0); Hemoglobin 12.4 g/dl (12.0-16.0); Imm Gran Abs Auto 0.02 X10*3/uL (0.00-0.03); Imm Gran Pct Auto 0.4 % (0.0-0.4); Lymphocytes Absolute Auto 2.3 X10*3/uL (1.2-4.9); Lymphocytes Percent Auto 40.2 % (20-40); Mean Corpuscular HGB Conc 33.6 g/dl (31.0-35.0); Mean Corpuscular Hemoglobin 34.4 pg (27.0-33.0); Mean Corpuscular Volume 102.5 fL (80.0-98.0); Mean Platelet Volume 9.5 fL (9.4-12.3); Monocytes Absolute Auto 0.5 X10*3/uL (0.1-1.2); Monocytes Percent Auto 9.6 % (2-11); Neutrophils Absolute Auto 2.6 x10*3/uL (2.0-8.3); Neutrophils Percent Auto 46.4 % (45-73); Platelet Count 262 X10*3/uL (160-400); Red Cell Distribution Width 13.7 % (11.0-16.0); White Blood Count 5.6 X10*3/uL (4.8-10.8)
[2024-08-25 14:05] LABS: Iron 128 mcg/dL (30-160); Percent Iron Saturation 47 % (15-50); Total Iron Binding Capacity 270 mcg/dL (228-428); Unsaturated Iron Binding 142 ug/dL; Uric Acid 3.2 mg/dL (2.4-5.7)
[2024-08-25 14:20] LABS: Ferritin 156 ng/mL (10-250)
== END 2024-08-25 08:47 | disposition home or self-care (01) ==
LOC: HO.MANLDS 08:46
PROVIDERS: Visit Provider Internal Medicine
DX: M10.9 Gout, unspecified (principal); Z86.39 Personal history of other endocrine, nutritional and metabolic disease
CPT/HCPCS: 36415; 82728; 83540; 84550; 85025

== ENCOUNTER 2024-10-06 09:13 | Outpatient (REF) | payer MEDICARE, SELFPAY ==
--- OUTSIDE RECORDS SUMMARY | 2024-10-06 09:35 | XMS_ITS | Data Portability ---
Author Organization [facility] Home Service Address [address] [place] [address] Assessment Encounter Date Assessment Date Assessment LastModified by Organization Details LastModified Time 12/08/2023 12/08/2023 [id number] [place] [address] ([employer]) MDM HIGH MUST MEET 2 OUT OF [...] COVERED Not available 12/08/2023 14:39:30 06/12/2024 06/12/2024 [address] [place] [address] ([employer]) MDM MODERATE MUST MEET 2 OUT OF [...] THAT IS COVERED Not available 06/12/2024 13:56:13 08/29/2024 08/29/2024 Patient presente d to office today for their Medicare Annual Wellness Visit. Education was provided on healthy nutrition, including a diet rich in fruits and vegetables, minimizing simple carbohydrates, salt, and saturated fats. Encouraged regular cardiovascular exercise such as walking at least 30 minutes daily, 5 times per week. Emphasized preventive health measures and educated pt on fall prevention and community-based lifestyle interventions to help reduce health risks and promote healthy living. [email or web address] Not available 08/28/2024 08:43:13 Plan of Treatment Reminders Order Date Submit Date Provider Last Modified By Organization Details Last Modified Time Details Appointments ANNUAL EXAM 2025 12:00P M DR RICHMOND Not available Not available Not available Lab lipid panel, blood 2024 025 [facility], [address] [place] [address], [id number], 08/29/2024 11:33:17 CBC w/ auto diff 2024 025 [facility], [address] [place] [address], [id number], 08/29/2024 11:33:17 CMP, serum or plasma 2024 025 [facility], [address] [place] [address], [id number], 08/29/2024 11:33:17 iron + TIBC + ferritin, serum 2024 025 [facility], [address] [place] [address], [id number], 08/29/2024 11:33:17 ESR (erythroc yte sedimenta tion rate), blood 2023 024 [facility], [address] [place] [address], [address], 12/20/2023 11:55:40 C-reactiv e protein, quantitat aniya, serum or plasma 2023 024 [facility], [address] [place] [address], [address], 12/20/2023 11:55:40 CBC w/ auto diff 2023 024 [facility], [address] [place] [address], [address], 12/20/2023 11:55:40 CMP, serum or plasma 2023 024 [facility], [address] [place] [address], [address], 12/24/2023 11:13:19 uric acid, serum or plasma 2023 024 [facility], [address] [place] [address], [address], 12/08/2023 14:41:46 iron + TIBC + ferritin, serum 2023 024 [facility], [address] [place] [address], [address], 12/15/2023 08:36:09 CBC 2023 024 [facility], [address] [place] [address], [address], 12/08/2023 14:41:46 iron + TIBC + ferritin, serum 2023 024 [facility], [address] [place] [address], [address], 01/10/2024 11:28:05 iron + TIBC + ferritin, serum 2023 024 [facility], [address] [place] [address], [address], 06/09/2024 10:32:23 iron + TIBC + ferritin, serum 2023 025 [facility], [address] [place] [address], [address], 09/06/2024 08:14:02 CMP, serum or plasma 2023 024 [facility], [address] [place] [address], [address], 10/25/2023 11:37:05 CBC 2023 024 [facility], [address] [place] [address], 15[address], 12/24/2023 11:05:36 TSH, serum or plasma 2023 024 [facility], [address] [place] [address], [address], 08/27/2023 11:27:58 vitamin D, 25-hydrox y, total, serum 2023 024 [facility], [address] [place] [address], [address], 08/27/2023 11:27:58 magnesium , serum or plasma 2023 024 [facility], [address] [place] [address], [address], 08/27/2023 11:27:58 lipid panel, blood 2023 024 [facility], [address] [place] [address], [address], 08/27/2023 11:27:58 Referral None recorded. Procedures None recorded. Surgeries None recorded. Imaging MAMMO, screening , digital, bilateral 2024 025 [facility], [address] , [place], [address], 09/12/2024 08:17:30 bone density 2024 025 [facility], [address], [place], [address], 09/12/2024 08:17:30 XR, sinuses 2023 024 [facility] (Imaging), [address] [place], [address], 01/17/2024 08:21:48 XR, chest, 2 view 2023 024 [facility] Central Scheduling, [address] [place], [address], 01/03/2024 08:51:10 Medication Orders azithromy aquilino 250 mg tablet 2023 025 [facility][id number], [address] [place], [address], 08/29/2024 10:59:24 Patient TargetsNo targets recorded. Patient Instructions Encounter Date Encounter Id Patient Instructions Last Modified By Organization Details Last Modified Time 12/08/2023 [id number] gout: care instructions Not available 12/08/2023 14:40:25 prediabetes: car e instructions Not available 12/08/2023 14:40:25 allergies: care instructions Not available 12/08/2023 14:40:25 high cholesterol : care instructions Not available 12/08/2023 14:40:25 06/12/2024 [id number] pulse oximetry* Not available 06/12/2024 14:00:27 cough: care instructions Not available 06/12/2024 14:00:27 complete PFT w/ post bronchodilator spirometry* [email or web address] Not available 06/19/2024 08:27:37 08/29/2024 [id number] advance care planning: care instructions Not available 08/29/2024 11:31:52 iron deficiency anemia: care instructions Not available 08/29/2024 11:31:52 Discussed and explained advance directives such as standard forms to the {{patient caregive r patient and caregiver}}. Face to face discussion lasted for a duration of ___ minutes. [email or web address] Not available 08/28/2024 08:43:13 Reason for Referral None Reported. Results Created Date Observation Date Name Description Value Unit Range Abnormal Flag Note LastModifiedBy Organization Detail LastModifiedTime 06/12/2006/12/2024 pulse oxime try* Result 98% Not Available [facility] [address] [facility] [address], [place], [address], 06/12/2024 08:39:08 01/10/20 24 12/23/2023 XR, chest , 2 view No observ ation record ed. [address] (Medical Records) [address] [place], [address], 01/10/2024 15:50:39 01/19/20 24 12/23/2023 XR, sinus es No observ ation record ed. [address] (Medical Records) [address] [place], [address], 01/19/2024 15:23:28 03/07/20 24 02/11/2024 CT, sinus es, w/o contr ast No observ ation record ed. [email or web address] [facility] (Medical Records) [address] [place], [address], 03/08/2024 12:04:11 07/22/19 25 07/21/2024 compl ete PFT w/ post [facility] hodil ator crispin metry * No observ ation record ed. [facility] (Medical Records) [address] [place], [address], 07/23/2024 20:57:47 Result Notes None recorded. Problems Name Problem SNOMED Code Status Onset Date Resolution Date Notes Provider Name and Address Organization Details Recorded Time Lumbar arthritis 691389997 Active 2018 Not Available [facility] 0 09:56:16 Lumbar spondylol isthesis 626318635443 102 Active 2020 Joseluis DavilaMary Richmond, DO [address] [place], [address], [facility] 1 15:52:45 Bradycard ia 25068922 Active 2020 Joseluis Boyce Bonnie, DO [address] [place], [address], [facility] 1 12:36:16 Numbness of face 946725609 Active 2021 Joseluis Boyce Bonnie, DO [address] [place], [address], 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 3 12:20:30 Impaired fasting glycemia 575955513 Active 2022 BLAZE PAULA [address] [place] [address], [address], [facility] 3 16:27:27 Dry eyes 790657442 Active 2022 BLAZE PAULA [address] [place] [address], [address], [facility] 3 16:38:13 Gout 79560444 Active 2022 BLAZE PAULA [address] [place] [address], [address], [facility] 3 16:43:02 Referred otalgia 75721082 Active 2022 Joseluis Richmond, [address] [place] [address], [address], [facility] 3 17:13:46 Degenerat ion of lumbar intervert ebral disc 72298216 Active 2022 BLAZE PAULA [address] [place] [address], [address], [facility] 3 11:53:57 Degenerat aniya lumbar spinal stenosis 137084917 Active 2022 BLAZE PAULA [address] [place] [address], [address], [facility] 3 14:32:34 Spinal stenosis of lumbar region 98467174 Active 2022 BLAZE PAULA [address] [place] [address], [address], [facility] 3 14:26:37 Constipat ion 71637385 Active 2022 Joseluis Richmond DO [address] [place] [address], [address], [facility] 3 14:07:04 Primary gout 10559559 Active 2022 Joseluis Richmond DO [address] [place] [address], [address], [facility] 3 17:56:11 Unintenti onal weight loss 394449066 Active 2022 Joseluis Richmond DO [address] [place] [address], [address], 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 3 14:58:09 Foot pain 57033642 Active 2022 BLAZE PAULA [address] [place] [address], [address], [facility] 3 12:20:38 Foot pain 57755567 Active 2022 BLAZE PAULA [address] [place] [address], [address], [facility] 3 12:25:48 Iron deficienc y anemia 80822238 Active 2022 BLAZE PAULA [address] [place] [address], [address], [facility] 3 12:25:53 Inflammat ion of lumbar spine joint 394439172 Active 2023 Joseluis Richmond DO [address] [place] [address], [address], [facility] 4 11:19:27 Squamous cell carcinoma 053543001 Active 2023 Joseluis Richmond DO [address] [place] [address], [address], [facility] 4 11:27:37 Allergic rhinitis 96450758 Active 2023 Joseluis Richmond DO [address] [place] [address], [address], [facility] 4 14:37:51 Cough 08737678 Active 2023 BLAZE PAULA [address] [place], [address], [facility] 4 11:40:57 Nasal congestio n 07664437 Active 2023 BLAZE PAULA [address] [place] [address], [address], [facility] 4 11:43:36 Frontal sinus pain 128410566 Active 2023 BLAZE PAULA [address] [place] [address], [address], [facility] 4 11:46:05 Bilateral earache 550003475 Active 2023 BLAZE PAULA [address] [place] [address], [address], [facility] 4 11:50:04 Chronic sinusitis 21084255 Active 2023 BLAZE PAULA [address] [place] [address], [address], [facility] 4 11:51:43 Anemia 226486536 Active 2023 BLAZE PAULA [address] [place] [address], [address], [facility] 4 15:52:58 Dyspnea on exertion 74199993 Active 2023 Joseluis Richmond DO [address] [place] [address], [address], 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 Procedures Surgical History Date Name Laterality Status Provider Name and Address Organization Details Recorded Time Colonoscopy completed [facility] Mtz ANIA Amelia [facility] 04/12/2019 14:32:11 Laparoscopy completed Kaila Bibi ANIA Amelia Fawad [facility] 04/12/2019 14:32:11 Imaging Results Imaging Date Name Status LastModified by Organization Details LastModified Time 12/23/2023 XR, chest, 2 view completed [address] (Medical Records) [address] [place], [address], 01/10/2024 15:50:39 12/23/2023 XR, sinuses completed [address] (Medical Records) [address] [place], [address], 01/19/2024 15:23:28 02/11/2024 CT, sinuses, w/o contrast completed [email or web address] [facility] (Medical Records) [address] [place], [address], 03/08/2024 12:04:11 07/21/2024 complete PFT w/ post bronchodilator spirometry* completed [address] (Medical Records) [address] [place], [address], 07/23/2024 20:57:47 Procedure Notes None recorded. Medical Equipment None Reported. Allergies Allergen ID Allergen Name Allergen Category Reaction Reaction Severity Criticality Documentation Date Start Date Code Code System Note Provider Name and Address Organization Details Recorded Time 4641 tizanidin e medicatio n confusion Not available Not available 01/15/2021 52173 RxNorm react ed with john Richmond DO [address] [place], [address], [facility] 1 14:30:31 599 meloxicam medicatio n Not available Not available Not available 09/15/2017 73223 [facility] 8 10:29:17 600 Non-stero idal anti-infl ammatory agent (product) medicatio n Not available Not available Not available 09/15/2017 18251 005 SNOMED Gregoria locke [facility] 8 10:29:24 601 succinylc holine Not available Not available Not available Not available 09/15/2017 43663 RxNorm Gregoria locke [facility] Internal [facility] 8 10:29:41 6649 latex environme nt,medica tion other moderate Not available 10/09/2022 06988 91 RxNorm Marily Travon locke [facility] Internal [facility] 3 16:13:44 Medications Name Sig Start [...] ORAL ROUTE ONCE DAILY FOR 4 DAYS 08/29 completed Not Available Not Available Not Available tizanidin e 4 mg tablet TAKE [...] ENT AND MAY REPEAT IF INEFFECT ANIYA 04/13 /2021 completed Not Available Not Available Not Available [...] Not Available Not Available Fluzone High-Dose Quad 2020-21 (PF) 240 mcg/0.7 mL IM syringe TO BE ADMINIST ERED BY PHARMACI ST FOR IMMUNIZA TION 09/25 completed Not [...] Updated DateTime 4 153.67 cm 23.3 kg/m2 23759.4 7 g 60 /min 99 % 99 % 152 mm[Hg] 80 mm[Hg] Joseluis Richmond, DO [address] [place], [address] [place] [address] Internal Medicine 4 11:00:49 Date Recorded Body height Body mass index (BMI) Body weight Heart rate Oxygen saturation Oxygen saturation in Arterial blood by Pulse oximetry Systolic blood pressure Diastolic blood pressure Provider Name and Address Organization Details Last Updated DateTime 4 153.67 cm 23.5 kg/m2 76942.6 3 g 75 /min 98 % 98 % 120 mm[Hg] 64 mm[Hg] Mini Winkler [facility] 4 14:01:47 Date Recorded Body height Body mass index (BMI) Body weight Heart rate Oxygen saturation Oxygen saturation in Arterial blood by Pulse oximetry Systolic blood pressure Diastolic blood pressure Provider Name and Address Organization Details Last Updated DateTime 4 152.4 cm 23.8 kg/m2 79664.2 7 g 59 /min 96 % 96 % 128 mm[Hg] 74 mm[Hg] Marily Cool [facility] 4 11:30:09 Date Recorded Body height Body mass index (BMI) Body weight Heart rate Oxygen saturation Oxygen saturation in Arterial blood by Pulse oximetry Systolic blood pressure Diastolic blood pressure Provider Name and Address Organization Details Last Updated DateTime 4 152.4 cm 25.8 kg/m2 30080.1 9 g 76 /min 98 % 98 % 126 mm[Hg] 70 mm[Hg] Tomiyue Abreu [facility] 4 13:37:01 Date Recorded Body height Body mass index (BMI) Body weight Heart rate Oxygen saturation Oxygen saturation in Arterial blood by Pulse oximetry Systolic blood pressure Diastolic blood pressure Provider Name and Address Organization Details Last Updated DateTime 5 152.4 cm 25.8 kg/m2 30850.5 5 g 63 /min 96 % 96 % 158 mm[Hg] 78 mm[Hg] Mini Winkler [facility] 5 11:04:56 Social History Question Answer Notes LastModified by Organizat ion Details LastModified Time Tobacco Smoking Status [facility]2017 11:25:58 What Is Your Level Of Alcohol Consumption? Occasional 2-3 Drinks Per Day Information not available 03/21/2019 What Is Your Level Of Caffeine Consumption? Occasional Decaf Information not available 03/21/2019 What Was The Date Of Your Most Recent Tobacco Screening? 08/29/2024 [email or web address] Information not available 08/29/2024 Sex: Unknown Functional Status Question Answer Note [...] mL dose 1 completed Valentina Gencarelle null, [facility] 12/25/2022 13:23:36 Influenza, split virus, quadrivalent, preservative 1 completed [facility] 13:23:36 Tdap 8 completed Not Available [facility] 12/06/2022 17:09:46 COVID-19, mRNA, LNP-S, PF, 30 mcg/0.3 mL dose 2 completed [facility] 12/25/2022 13:23:36 Influenza, split virus, quadrivalent, preservative 2 completed [facility] 12/25/2022 13:23:36 zoster live 8 completed Not Available [facility] 12/06/2022 17:09:46 Influenza, split virus, quadrivalent, preservative 9 completed Valentina Gencarelle null, [facility] 12/25/2022 13:23:36 Influenza, split virus, quadrivalent, preservative 0 completed [facility] 12/25/2022 13:23:36 COVID-19, mRNA, LNP-S, PF, 30 mcg/0.3 mL dose 1 completed [facility] 12/25/2022 13:23:36 COVID-19, mRNA, LNP-S, PF, 30 mcg/0.3 mL dose 1 completed Valentina Gencarelle chucky, [facility] Internal [facility] 12/25/2022 13:23:36 zoster, unspecified formulation 5 completed Valentina Gencarelle chucky, [facility] 12/25/2022 13:23:36 pneumococcal polysaccharide PPV23 6 completed Valentina Gencarelle chucky, [facility] 12/25/2022 13:23:36 Past Encounters Encounter ID Performer Location Encounter Start Date Encounter Closed Date Diagnosis/Indication Diagnosis SNOMED-CT Code Diagnosis ICD10 Code Diagnosis Note [id number] Joseluis Richmond [facility] Internal [address], [place] [address] 11/30/2017 11:17:02 11/30/2017 12:18:59 Adult health examination 151930844 Z00.01 noted inability to take nsaids and is in constant pain suggest cont tylenol has seen rheumatolo sandeep who said her issue is only OA and not an active disease Active or passive immunization 771181666 Z23 Osteoarthritis 434066029 M19.90 will try pain med at hs [id number] Joseluis Richmond [facility] [address], [place] [address] 02/23/2018 14:29:32 02/23/2018 15:43:37 Hypertensive disorder 01223355 I10 Gastroesop hageal reflux disease 422643438 K21.9 has been stable now is monica pomeprazol e takes occ zantac Hyperlipidemia 37129254 E78.5 will cont to monitor if med needed Osteoarthritis 931780500 M19.90 will try pain med at hs also will need xray of hips percy due to severe pain at level ot right hip inner aspect Osteoarthr itis of wrist 400207232 M19.039 trial to get diclofenac 3% Pain in ri ght hip joint 1139492941 77821 M25.551 xray as nioted Fatigue 56431050 R53.83 [id number] Joseluis Richmond [facility] [address] [place] [address],[place] [address] 03/14/2018 14:12:54 03/14/2018 14:56:12 Hypertensive disorder 66292923 I10 doing well overall no issuews discussed lab resul;ts at length and is doing great Osteoarthritis 965658091 M19.90 will try pain med at hs also will need xray of hips percy due to severe pain at level ot right hip inner aspect discussion re rheumatolo gist recc for gabapentin will be seeing back in 3 mo 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 19643905 M50.30 stable at this time [id number] Joseluis Richmond DO [facility] [address] [facility],[place] [address] 07/11/2018 13:25:07 07/11/2018 14:14:46 Hypertensive disorder 56398591 I10 doing well overall no issuews discussed lab resul;ts at length and is doing great Osteoarthritis 266671562 M19.90 will be seeing a ortho for her wrists and see if it is viable to get surg will try lyrica will be seeing back in 3 mo will recc she try the diclofenac 3% lotion and get a RX from rheum Hyperlipidemia 50932986 E78.5 will cont to monitor if med needed [id number] Joseluis Richmond DO [facility] [address] [facility],[place] [address] 12/12/2018 13:24:57 12/12/2018 13:59:29 Hypertensive disorder 51693713 I10 doing well denies any issues with her med home bp stable Hyperlipidemia 53641003 E78.5 will cont to monitor if med needed after we get lab work next visit Bilateral carpal tunnel syndrome 2986563486 7435537 G56.03 dr earl is going to do 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 73252533 M50.30 will stop the lyrica and see if it was working and let me know if she will stay on or off if its been helping julio increase the dose too also will have her get some PT Lumbar arthritis 9829520 01 M46.96 PT refer Bilateral wrist pain 065 3082175 3071793 M25.532 [id number] Joseluis Richmond DO [facility] [address] [place] [address] 03/21/2019 11:56:26 03/21/2019 12:32:55 Adult health examination 847982514 Z00.01 will try the nabumetone 500mg 1 po daily consider trying the prilosec and will let me know if it is helping and she will increase the dose accordingl y has seen rheumatjessica hopkins who said her issue is only OA and not an active disease Active or passive immunization 345787653 Z23 Degenerati on of lumbar intervertebral disc 34370265 M51.36 ongoing pain and discomfort with signif loss of motor tone to paraverteb has palp pain to bilat SI joints as well pt is ambulating now with a significan t stoop in her posture we will try to obtain a brace for her lower lumbar an SI joint [id number] September [facility] [address] [place] [address] 04/12/2019 14:10:01 04/12/2019 15:10:15 Pre-surgery evaluation 490483193 Z01.818 clear for cataract procedure Bilateral cataracts 9572 2004 H26.9 Essential hypertension 39503611 I10 stable diet/exerc ise controlled [id number] [facility] [address] [place] [address] 06/16/2019 11:58:47 06/16/2019 12:39:35 Pre-surgery evaluation 362857386 Z01.818 patient is currently cleared for the proposed cataract surgery and according to the 2017 ACC revised cardiac risk profile she is a LOW RISK for the procedure [id number] Joseluis Richmond [facility] Internal Medicine [address] [place] [address] 10/30/2019 11:28:17 10/30/2019 12:13:16 Lumbar arthritis 503071353 M46.96 PT refer will try increasing the dose and see if her back pain is improved Hypertensive disorder 38 449839 I10 doing well denies any issues with her med home bp stable but now noted that she had a cotton wool spot c/w hemorrhage of retina Diverticul itis of sigmoid colon 911654749 K57.32 [place] [id number] Joseluis Murraykisha [facility] Internal Medicine [address] [facility],[place] [address] 02/19/2020 10:25:37 02/19/2020 11:25:58 Hypertensive disorder 37108773 I10 doing well denies any issues with her med home bp stable but now noted that she had a cotton wool spot c/w hemorrhage of retina Lumbar arthritis 6861724 01 M46.96 PT refer will try increasing the dose and see if her back pain is improved Spinal cyrus nosis of lumbar region 00674144 M48.061 [id number] BLAZE PAULA [facility] Internal Medicine [address] [facility],[place] [address] 06/10/2020 09:05:36 06/10/2020 11:35:51 Gout 40016978 M10.9 will start on pred taper and see if improvemen t will also mail patient gout diet tips Gastroesop hageal reflux disease 703549961 K21.9 trying to avoid NSAIDs, agreed pred taper may be the safest for her [id number] Joseluis Boyce DO Bonnie [facility] Internal Medicine [address] [facility],[place] [address] 09/25/2020 12:07:08 09/25/2020 14:35:06 Lumbar arthritis 938026884 M46.96 PT refer will try increasing the dose and see if her back pain is improved Hypertensive disorder 38 468420 I10 doing well denies any issues with her med home bp stable but now noted that she had a cotton wool spot c/w hemorrhage of retina Solitary sacroiliitis 23 0307333 M46.1 will be seeing basck specialist s on wednesday as they consider gin=ving her a radiofreq treatment in the meantime she is struggling withthe pain and we will relieve it Degenerati ve lumbar spinal stenosis 373199028 M48.061 as above Bilateral wrist pain 685 7023679 2268813 M25.532 [id number] Joseluis Boyce DO Bonnie [facility] Medicine [address] [facility] [address],[place] [address] 10/08/2020 11:58:43 10/08/2020 14:31:32 Active or passive immunization 457576186 Z23 is utd and has gotten her covid pfizer vacc Adult heal th examination 827624856 Z00.01 currently is stable and is doing ok but back pain had gotten better after episurals by dr busby now the pain is back and she phj7rui to see oh she now needs to get some fbw this summer [id number] Joseluis Richmond [facility] Internal Medicine [address] [facility],[place] [address] 10/30/2020 15:27:18 10/30/2020 16:15:21 Lumbar spondylolisthesis 4572869781 11956 M43.16 will be undergoing a lumbar stenosis procedure on december 06 discussed this at length [id number] BLAZE PAULA [facility] Medicine [address] [place] [address],[place] [address] 11/18/2020 13:27:16 11/18/2020 14:24:38 Pre-surgery evaluation 959914689 Z01.818 The patient was seen in the office today for pre-op evaluation . All medical conditions on patient's problem list were addressed and are currently stable, no interventi on needed at this time. Based on history and physical performed, the patient is cleared for surgery. 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
--- OUTSIDE RECORDS SUMMARY | 2024-10-06 09:36 | XMS_ITS | Clinical Summary ---
Author Organization [facility] Address [address] [place] [id number] Care Team Providers Care Winding Operator Name Role Phone Joseluis Nicole Primary Care Provider [phone] Allergies Active Allergy Reactions Criticality Noted Date [...] age to complete this topic Care Teams Winding Operator Relationship Specialty Start Date End Date Joseluis Nicole DO [address] [facility] [place] [address] [place] [address] PCP - General Internal Medicine 04/29/23
--- OUTSIDE RECORDS SUMMARY | 2024-10-06 09:36 | XMS_ITS | Encounter Summary ---
Author Organization [facility] Address [address] [place] [address] Care Team Providers Care Post Office Clerk Name Role Phone Joseluis Nicole DO Primary Care Provider [phone] Encounter Details Date Type Department Care Team (Late st Contact Info) Description 05/13/2023 Scanned Document [facility] RHEUMATOLOGY SCAN Rheumatology, Scan Social History [...] on filedocumented in this encounter Care Teams Post Office Clerk Relationship Specialty Start Date End Date Joseluis Nicole DO [address] [facility] [place] [address] [place] [address] PCP - General Internal Medicine 04/29/23 documented as of this encounter
--- OUTSIDE RECORDS SUMMARY | 2024-10-06 09:36 | XMS_ITS | Encounter Summary ---
Author Organization [facility] Address [address] [place] [address] Care Team Providers Care Inside Sales Account Executive Name Role Phone Joseluis Nicole DO Primary Care Provider Encounter Details Date Type Department Care Team (Late st Contact Info) Description 04/29/2023 Scanned Document [facility] RHEUMATOLOGY SCAN Rheumatology, Scan Social History Tobacco [...] on filedocumented in this encounter Care Teams Inside Sales Account Executive Relationship Specialty Start Date End Date Joseluis Nicole DO [address] [facility] [place] [address] [place] [address] PCP - General Internal Medicine 04/29/23 documented as of this encounter
[2024-10-06 13:16] LABS: MANUAL DIFF FLAG NO
[2024-10-06 13:26] LABS: Basophils Absolute Auto 0.1 X10*3/uL (0.0-0.2); Basophils Percent Auto 1.2 % (0-2); Eosinophils Absolute Auto 0.1 X10*3/uL (0.0-0.4); Eosinophils Percent Auto 1.9 % (0-4); Hematocrit 36.7 % (37.0-47.0); Hemoglobin 12.4 g/dl (12.0-16.0); Imm Gran Abs Auto 0.01 X10*3/uL (0.00-0.03); Imm Gran Pct Auto 0.2 % (0.0-0.4); Lymphocytes Absolute Auto 2.5 X10*3/uL (1.2-4.9); Lymphocytes Percent Auto 42.5 % (20-40); Mean Corpuscular HGB Conc 33.8 g/dl (31.0-35.0); Mean Corpuscular Hemoglobin 34.2 pg (27.0-33.0); Mean Corpuscular Volume 101.1 fL (80.0-98.0); Mean Platelet Volume 9.6 fL (9.4-12.3); Monocytes Absolute Auto 0.5 X10*3/uL (0.1-1.2); Neutrophils Absolute Auto 2.7 x10*3/uL (2.0-8.3); Neutrophils Percent Auto 45.2 % (45-73); Platelet Count 268 X10*3/uL (160-400); Red Blood Count 3.63 X10*6/uL (4.20-5.50); Red Cell Distribution Width 13.2 % (11.0-16.0); White Blood Count 5.9 X10*3/uL (4.8-10.8)
[2024-10-06 14:00] LABS: Alanine Aminotransferase 16 U/L (0-31); Alkaline Phosphatase 70 U/L (39-117); Anion Gap 12 (12-20); Aspartate Amino Transferase 26 U/L (5-31); Bilirubin Total 0.7 mg/dL (0.0-1.0); Blood Urea Nitrogen 22 mg/dL (9-16); Calcium 9.5 mg/dL (8.4-10.2); Carbon Dioxide 26 mmol/L (22-29); Chloride 107 mmol/L (96-108); Cholesterol 262 mg/dL (<200); Estimated Glomerular Filt Rate > 60; Glucose Random 105 mg/dL (60-115); HDL Cholesterol 116 mg/dL (>40); Iron 104 mcg/dL (30-160); LDL Cholesterol Calculated 133 mg/dL (<100); Percent Iron Saturation 39 % (15-50); Potassium 4.5 mmol/L (3.3-5.1); Sodium 140 mmol/L (135-145); Total Iron Binding Capacity 267 mcg/dL (228-428); Triglycerides 69 mg/dL (<150); Unsaturated Iron Binding 163 ug/dL
[2024-10-06 14:07] LABS: Ferritin 238 ng/mL (10-250)
== END 2024-10-06 09:14 | disposition home or self-care (01) ==
LOC: HO.MANLDS 09:13
PROVIDERS: Visit Provider Internal Medicine
DX: Z13.89 Encounter for screening for other disorder (principal)
CPT/HCPCS: 36415; 80053; 80061; 82728; 83540; 84550; 85025

== ENCOUNTER 2025-01-24 08:06 | Outpatient (REF) | payer MEDICARE, SELFPAY ==
--- OUTSIDE RECORDS SUMMARY | 2025-01-24 08:11 | XMS_ITS | Encounter Summary ---
Author Organization [facility] Address [address] [address] Phone Care Team Providers Care Personnel Technician Name Role Phone Bigda, Joseluis A DO Primary Care Provider [phone] Bigda, Joseluis A DO Unavailable Bigda, Joseluis A DO Primary Care Provider Encounter Details Date Type Department Care Team (Latest Contact Info) Description 11/24/2022 Transcribe Orders Virtual Department [address] [place] [address] Fatimah Mariano PA [address] [place] [address] [place] [address] Other intervertebral disc degeneration, lumbar region (Primary Dx) Social History Tobacco Use Types Packs/Day Years Used Date Smoking Tobacco: Former Cigarettes Q uit: 1965 Smokeless Tobacco: Never Alcohol Use Standard Drinks/Week Comments Yes 14 (1 standard drink = 0.6 oz pu re alcohol) 2 glasses per day Education Answer Date Recorded Are you interested in more education? Not on natalia e 10/22/2022 Are you concerned about learning? Not on file 10/22/2022 No 10/22/2022 No 10/22/2022 Digital Access Answer Date Recorded No 11/23/2022 No 11/23/2022 Reliable internet access at home? Not on file 11/23/2022 Device with a working camera? Not on file Comments No Sex and Gender Information Value Date Recorded Sex Assigned at Female 08/27/2022 11:28 AM EST Legal Sex Female 8:07 PM EST Gender Identity Female 08/27/2022 11:28 AM EST Sexual Orientation Choose not to disclose 2022 11:28 AM EST documented as of this encounter Plan of Treatment Upcoming Encounters Date Type Department Care Team (Late st Contact Info) Description 08/29/2024 Procedure Pass [address] [address] 03/09/2025 1:45 PM EDT Appointment [address] [address] Joseluis Nicole DO [address] [place] [address] 07/05/2025 1:45 PM EST Appointment [facility] Bone Density [address] [address] Joseluis Nicole DO [address] [place] [address] documented as of this encounter Visit Diagnoses Diagnosis Other intervertebral disc degeneration, lumbar region- Primary documented in this encounter Additional Health Concerns Infection Onset Date Last Indicated Resolved Time CoV-Risk 04/14/2024 04/14/2024 04/25/2024 1:22 AM EDT documented as of this encounter Care Teams Personnel Technician Relationship Specialty Start Date End Date Joseluis Nicole DO PCP - General 12/26/13 08/31/24 Joseluis Nicole DO [address] [place] [address] PCP - General Internal Medicine 09/01/24 Joseluis Nicole DO [email or web address] Historical LMR Provider 04/17/17 documented as of this encounter Additional Source Comments The information contained in this document represents components of the legal health record. It is not the complete legal health record.[facility]
--- OUTSIDE RECORDS SUMMARY | 2025-01-24 08:11 | XMS_ITS ---
Author Name [facility] Organization Unknown History of Medication Use Medication Directions Dispensed Refills Start Date End Date Stat us allopurinol (ZYLOPRIM) 100 mg tablet Take 1 tablet (100 mg total) by mouth daily. 04/28/2023 active allopurinol (ZYLOPRIM) 300 MG tablet Take 1 tablet (300 mg total) by mouth daily. 04/20/2023 active acetaminophen (TYLENOL) 500 MG tablet Take 1 tablet (500 mg total) by mouth 3 times daily (every 8 hours) as needed. active Bacillus Coagulans-Inulin (Probiotic) 1-250 BILLION-MG Cap Take 250 mg by mouth. active calcium carbonate (CALTRATE) 1500 (600 Ca) MG tablet 1 tablet (1,500 mg total) daily. active Allergies Allergen Reaction Severity Comment Documented Date Source Statu s NSAIDS GI INTOLERANCE/NAUSE A/VOMITING GI Upset 05/13/2023 [facility] active TIZANIDINE PALPITATIONS Other reaction(s): Confusion 09/27/2022 [facility] active SUCCINYLCHOLINE OTHER (SEE COMMENTS) Prolonged paralysis (1-2 days) 07/12/2020 [facility] active MELOXICAM OTHER (SEE COMMENTS) cramping 10/06/2012 [facility] active Problems Problem Status Onset Date Problem Type Date of Resolution Source Right foot pain active EncounterDiagnosisAct [facility] Primary osteoarthritis involving multiple joints active EncounterDiagnosisAct [facility] Encounters Encounter Type Encounter Reason Primary Diagnosis Location Date Ambulatory Polyosteoarthritis, unspecified Polyosteoarthritis, unspecified [facility] 05/13/2023 Care Team Organization Name Specialty Phone Email Start Date End Da jhony [facility] 07/18/2023 [facility] 05/13/2023 09/13/2024 [facility] 05/13/2023 05/13/2023
--- OUTSIDE RECORDS SUMMARY | 2025-01-24 08:11 | XMS_ITS | Clinical Summary ---
Author Organization [facility] Address [address] [place] [address] Care Team Providers Care Exhibits Manager Name Role Phone Joseluis Nicole Primary Care Provider [phone] Allergies Active Allergy Reactions Criticality Noted Date Comments Meloxicam GI Intolerance/Nausea/Vomiti ng,Other (See Comments) Low 10/06/2012 cramping Nsaids GI Intolerance/Nausea/Vomiti ng Low 05/13/2023 GI Upset Succinylcholine Myalgia/Myositis/Art hralg ia/Arthritis,Other (See Comments) Low 07/12/2020 Prolonged paralysis (1-2 days) Tizanidine Palpitations Medium 09/27/2022 Other reaction(s): Confusion Medications acetaminophen (TYLENOL) 500 MG tablet Take 1 tablet (500 mg total) by mouth 3 times daily (every 8 hours) as needed. Active allopurinol (ZYLOPRIM) 100 mg tablet Take 1 tablet (100 mg total) by mouth daily. 3 Active allopurinol (ZYLOPRIM) 300 MG tablet Take 1 tablet (300 mg total) by mouth daily. 3 Active Bacillus Coagulans-Inuli n (Probiotic) 1-250 BILLION-MG Cap Take 250 mg by mouth. Active calcium carbonate (CALTRATE) 1500 (600 Ca) MG tablet 1 tablet (1,500 mg total) daily. Active cholecalciferol (Vitamin D-[address]) 25 MCG (1000 UT) tablet 1 tablet Active Restasis 0.05 % ophthalmic emulsion Administer 1 drop to both eyes 2 (two) times a day. 3 Active diphenoxylate-a tropine (LOMOTIL) 2.5-0.025 MG per tablet 3 Active LUTEIN PO Take 1 tablet by [...] drink = 0.6 oz pur e alcohol) Comments No Sex and Gender Information Value Date Recorded Sex Assigned at Female 04/29/2023 1:57 PM EDT Legal Sex Female 1:51 PM EDT Gender Identity Female 04/29/2023 1:57 [...] Patients (1 - 1-dose 75+ series) 2017 COVID-19 Vaccine ( season) 2024 04/29/2022, 03/18/2021, 08/28/2020, Additional history exists Influenza Vaccine 01/26/2025 04/14/2022, , 02/19/2020, Additional history exists Hepatitis B Vaccines Aged Out No long er eligible based on patient's age to complete this topic Insurance [facility] MEDICARE PART A & B Care Teams Exhibits Manager Relationship Specialty Start Date End Date Joseluis Nicole DO [address] [facility] [place] [address] [place] [address] PCP - General Internal Medicine 04/29/23
[2025-01-24 13:26] LABS: MANUAL DIFF FLAG NO
[2025-01-24 13:40] LABS: Hematocrit 36.6 % (37.0-47.0); Hemoglobin 12.4 g/dl (12.0-16.0); Imm Gran Abs Auto 0.01 X10*3/uL (0.00-0.03); Imm Gran Pct Auto 0.2 % (0.0-0.4); Lymphocytes Absolute Auto 2.7 X10*3/uL (1.2-4.9); Mean Corpuscular HGB Conc 33.9 g/dl (31.0-35.0); Mean Corpuscular Hemoglobin 34.3 pg (27.0-33.0); Mean Corpuscular Volume 101.1 fL (80.0-98.0); NRBC Abs Auto 0.000 X10*3/uL (0.0-0.012); NRBC Pct Auto 0.0 /100WBC (0.0-0.2); Platelet Count 283 X10*3/uL (160-400); Red Blood Count 3.62 X10*6/uL (4.20-5.50); White Blood Count 5.3 X10*3/uL (4.8-10.8)
[2025-01-24 18:05] LABS: Alanine Aminotransferase 13 U/L (0-31); Albumin Level 3.9 g/dL (3.5-5.0); Alkaline Phosphatase 69 U/L (39-117); Anion Gap 15 (12-20); Aspartate Amino Transferase 23 U/L (5-31); Blood Urea Nitrogen 20 mg/dL (9-16); Calcium 8.8 mg/dL (8.4-10.2); Carbon Dioxide 22 mmol/L (22-29); Chloride 109 mmol/L (96-108); Cholesterol 244 mg/dL (<200); Estimated Glomerular Filt Rate > 60; HDL Cholesterol 89 mg/dL (>40); Iron 102 mcg/dL (30-160); Percent Iron Saturation 38 % (15-50); Potassium 4.5 mmol/L (3.3-5.1); Sodium 141 mmol/L (135-145); Total Iron Binding Capacity 271 mcg/dL (228-428); Total Protein 6.4 g/dL (6.5-8.0); Triglycerides 75 mg/dL (<150); Unsaturated Iron Binding 169 ug/dL; Uric Acid 2.9 mg/dL (2.4-5.7)
== END 2025-01-24 08:07 | disposition home or self-care (01) ==
LOC: HO.MANLDS 08:06
PROVIDERS: Visit Provider Internal Medicine
DX: Z00.01 Encounter for general adult medical examination with abnormal findings (principal); Z13.6 Encounter for screening for cardiovascular disorders; D50.0 Iron deficiency anemia secondary to blood loss (chronic); M10.9 Gout, unspecified
CPT/HCPCS: 36415; 80053; 80061; 83540; 84550; 85025